=== PATIENT | female | born 1960 | race Caucasian/White ===

== ENCOUNTER 2019-06-28 13:21 | Inpatient (IN) ==
[2019-06-28 14:10] LABS: BASO# 0.15 X1000 (0.0-0.2); EOS# 0.12 X1000 (0.0-0.7); EOS% 0.8 % (0.0-10.0); HEMATOCRIT 36.7 % (37.0-47.0); HEMOGLOBIN 10.1 g/dL (12.0-16.0); IMM GRAN# 0.07 X1000 (0.0-0.04); IMM GRAN% 0.5 % (0.0-0.5); LYMPH# 2.57 X1000 (1.2-3.4); MCH 25.7 PG (27-31); MCHC 27.5 g/dL (33-37); MCV 93.4 FL (81-99); MONO# 1.38 X1000 (0.11-0.59); MONO% 9.1 % (1.7-9.3); MPV 8.8 FL (7.4-10.4); NEUT# 10.86 X1000 (1.4-6.5); NEUT% 71.6 % (42.2-75.2); PLT 623 X1000 (130-400); RBC 3.93 XMIL (4.2-5.4); RDW 17.7 % (11.5-14.5); WBC 15.15 X1000 (4.8-10.8)
--- NOTE | 2019-06-28 14:13 | Diag Imaging Result Doc PS360 ---
CHEST-1 VIEW - 06/28/2019 INDICATION: SOB COMPARISON: 06/17/2016 FINDINGS: The lung volumes are lower. There is some increasing linear atelectasis in both lung bases. There is mild cardiomegaly. No infiltrates or edema. No pneumothorax or large pleural effusion. IMPRESSION: Mild cardiomegaly. Lower lung volumes. Bibasilar linear atelectasis. Electronically signed by Placido Bragg 06/28/2019 2:10 PM
[2019-06-28 14:28] LABS: ALB/GLOB RATIO 1.3; ALBUMIN 3.7 g/dL (3.5-5.0); CALCIUM 8.8 mg/dL (8.8-10.2); CREATININE 1.3 mg/dL (0.5-0.9); POTASSIUM 4.4 mmol/L (3.5-5.1); TOTAL BILIRUBIN 0.27 mg/dL (0.20-1.00); TOTAL PROTEIN 6.5 g/dL (6.3-8.3)
[2019-06-28 14:37] LABS: ALLEN TEST YES; BE 2.5 mmoll (-3.0-3.0); BLOOD TYPE ARTERIAL; HCO3-(ACT) 26.6 mmoll (20.0-26.0); METHB 1.4 % (0.0-1.5); O2(CT) 12.8 mL/dL (15.0-23.0); PO2(98.6) 81 mmHg (60-100); SAMPLE BLOOD; SAO2 94.8 % (95.0-100.0); THB 10.6 g/dL (11.5-17.4)
[2019-06-28 14:38] LABS: MODALITY CANNULA; pH(98.6) 7.19 (7.35-7.45)
[2019-06-28 14:39] LABS: O2HB 85.1 % (95.0-99.0); PCO2(98.6) 85 mmHg (35-45)
--- NOTE | 2019-06-28 15:08 | Diag Imaging Result Doc PS360 ---
CT HEAD W/O CONTRAST - 06/28/2019 INDICATION: acute confusion COMPARISON: None FINDINGS: The ventricles and sulci are normal in size and contour. No intracranial mass or hemorrhage. The skull is intact. The sinuses mastoids and middle ears are clear. IMPRESSION: Negative exam. This exam was performed using automated exposure control, adjustment of mA or kV according to patient size, and/or use of iterative reconstruction technique Electronically signed by Placido Bragg 06/28/2019 3:06 PM
[2019-06-28 15:58] LABS: UR AMPHETAMINES QUAL NONE DETECTED (NONE DETECT); UR BARBITUATES QUAL NONE DETECTED (NONE DETECT); UR BENZODIAZEPIN QUAL NONE DETECTED (NONE DETECT); UR CANNABINOIDS QUAL NONE DETECTED (NONE DETECT); UR COCAINE QUAL NONE DETECTED (NONE DETECT); UR METHADONE QUAL NONE DETECTED (NONE DETECT); UR OPIATES QUAL NONE DETECTED (NONE DETECT); UR OXYCODONE QUAL PRESUMPTIVE POSITIVE (NONE DETECT); UR PCP QUAL NONE DETECTED (NONE DETECT)
[2019-06-28] MEDS ORDERED: NARCAN ONE (16:09)
[2019-06-28] MEDS ORDERED: NARCAN IV ONE (16:10)
--- NOTE | 2019-06-28 16:42 | PROVIDER DOCUMENTATION ---
This chart was entered by Gisselle Munoz Scribe, acting as scribe for Caden Tiwari MD. HPI-Respiratory General - General Chief Complaint: Shortness of Breath Stated Complaint: SOB WORSENING Time Seen by Provider: 06/28/19 13:24 Source: patient Allergies/Adverse Reactions: Patient Allergies Allergy/AdvReac Type Severity Reaction Status Date / Time Penicillins Allergy HIVES Verified 05/26/15 13:10 antihistamines Allergy SHORTNESS Uncoded 05/26/15 13:10 OF BREATH Home Medications: Home Medication List Medication Instructions Recorded Confirmed Last Taken Type Albuterol Sulfate [Proventil Hfa] 2 puff PO PRN PRN 05/26/15 06/18/16 05/26/15 11:00 History Cholecalciferol (Vitamin D3) 50,000 unit PO DIRECTED 05/26/15 06/18/16 05/24/15 02:00 History [Vitamin D] Fluticasone/Vilant 100/25 INH 1 inhaler DAILY 05/26/15 06/18/16 05/24/15 02:00 History [Breo Ellipta 100/25 Mcg INH] Losartan [Cozaar] 25 mg PO DAILY 05/26/15 06/18/16 05/26/15 02:00 History Levofloxacin [Levaquin] 500 mg PO DAILY #10 tablet 05/29/15 06/18/16 Unknown Rx Methylprednisolone [Medrol Dosepak] 4 mg PO DIRECTED #1 package 05/29/15 06/18/16 Unknown Rx Tiotropium [place] Inhaler 1 puff INH RTDAILY #30 inhaler 05/29/15 06/18/16 Unknown Rx [Spiriva] Albuterol 2.5MG/Ipratrop 0.5MG 3 ml INH Q6H PRN PRN #120 neb 06/18/16 Unknown Rx [Duoneb] Fluticasone/Salmeterol [Advair 1 each IH BID #3 disk.w.dev 06/18/16 Unknown Rx 500-50 Diskus] Levofloxacin [Levaquin] 500 mg PO DAILY #10 tablet 06/18/16 Unknown Rx Methylprednisolone [Medrol Dosepak] 4 mg PO DIRECTED #1 package 06/18/16 Unknown Rx - History of Present Illness-Resp Nature of Presenting Problem: 58 yof c/o sob for few days becoming worse. pt is on 4L o2, advair and spiriva at home. pt was d/c 10 days ago for PNA, is on levaquin and steroids. pt was able to have conversation w/rn but during exam, pt became altered. pt pcp is Dr. balderrama. hx COPD. pt smokes 2ppd. Severity in ED: reports: mild Onset/Duration: reports: gradual Timing: reports: still present, getting worse Cough Quality/Degree: reports: no cough Current Respiratory Medication Therapy: Initiated other (2L o2, advair and spiriva) Modifying Factors: improves with: nothing Associated Symptoms: reports: denies symptoms Recently seen or treated by another doctor?: Yes Review of Systems - Adult - REVIEW OF SYSTEMS - ADULT Constitutional: reports: see HPI, other (AMS). denies: fever, fatique, night sweats Eyes: reports: no symptoms reported Ears, Nose, Mouth & Throat: reports: no symptoms reported Cardiovascular: reports: no symptoms reported Respiratory: reports: see HPI, shortness of breath. denies: cough, dyspnea on exertion, wheezing Gastrointestinal: reports: no symptoms reported Genitourinary: reports: no symptoms reported Musculoskeletal: reports: no symptoms reported Integumentary: reports: no symptoms reported Neurological: reports: no symptoms reported Psychiatric: reports: no symptoms reported Endocrine: reports: no symptoms reported Hematologic/Lymphatic: reports: no symptoms reported Allergic/Immunologic: reports: no symptoms reported All Other Systems: Reviewed and Negative Past History - Adult - PAST MEDICAL HISTORY-ADULT Review of Records: reports: Nursing Assessment Review, Medications Reviewed, Social history reviewed & non-contributory. Major Childhood Illnesses: reports: denies history Cardiovascular: reports: HTN Respiratory: reports: COPD Gastrointestinal: reports: denies history Obstetrical/Gynecological: reports: denies history Genitourinary: reports: denies history Musculoskeletal: reports: denies history Neurological: reports: denies history Endocrine/Immune: reports: denies history Other Conditions: reports: denies history - PRIOR SURGERIES/PROCEDURES Surgical/Procedure History: reports: none - IMMUNIZATION STATUS Childhood Immunizations: See Nurse Assessment Flu Vaccine: See Nurse Assessment - FAMILY HISTORY Family History: reviewed, not pertinent - SOCIAL HISTORY Smoking: cigarettes, greater than 1 pack/day Provider spent 3-5 mins advising pt. on dangers of tobacco.: Discussed manners to quit use, and f/u contacts for add'l counseling. Substance Use: none/never Physical Exam-General - PHYSICAL EXAM-ADULT Initial Vital Signs Reviewed: Yes - CONSTITUTIONAL General Appearance: no apparent distress, slow to respond. negative: cachetic, anxious, lethargic - EYES Eyes: PERRL/EOMI - HEAD, EARS, NOSE, MOUTH & THROAT HENMT: normocephalic/atraumatic, moist mucous membranes - NECK Neck: non-tender, full range of motion, supple, normal inspection - RESPIRATORY Respiratory: chest non-tender, lungs clear, normal breath sounds, no pleuratic chest pain, no respiratory distress, no accessory muscle use. negative: respiratory distress, decreased breath sounds, wheezing - CARDIOVASCULAR Cardiovascular: normal peripheral pulses, regular rate, rhythm - GASTROINTESTINAL (ABDOMEN) Abdominal Exam: normal bowel sounds, non tender, soft - MUSCULOSKELETAL Back Exam: normal inspection Extremity: normal range of motion, non-tender, normal inspection - SKIN Integumentary: normal color, normal turgor, warm/dry - NEUROLOGIC Neurologic: no motor/sensory deficits - PSYCHIATRIC Psych/Mental Status: other (tangentral responses to questions but not completely disoriented, kept saying she wanted to go to sleep). negative: normal mood/affect, normal thought content, normal thought process Progress - PLAN OF CARE/RESULTS Progress/Plan/Lab Results: Vital Signs - 8 hr 06/28/19 13:44 06/28/19 15:43 Temperature 99.0 F Pulse Rate 107 H 101 H Respiratory Rate 24 30 H Blood Pressure 117/91 117/91 O2 Sat by Pulse Oximetry 95 86 L Laboratory Results - last 24 hr 06/28/19 06/28/19 06/28/19 13:25 13:25 13:25 WBC RBC Hgb Hct MCV MCH MCHC RDW Std Deviation Plt Count MPV Immature Gran % (Auto) Neut % (Auto) Lymph % (Auto) [place] % (Auto) Eos % (Auto) Baso % (Auto) Immature Gran # (Auto) Neut # (Auto) Lymph # (Auto) [place] # (Auto) Eos # (Auto) Baso # (Auto) Specimen Type Sample Site pH pCO2 pO2 HCO3 Base Excess Oxyhemoglobin ABG O2 Sat (Calculated) ABG O2 Saturation ABG Carboxyhemoglobin ABG Methemoglobin Phil Test A-a O2 Difference Total Hemoglobin Lactate Liter Flow Blood Gas Modality FiO2 % Sodium 133 L Potassium 4.4 Chloride 90 L Carbon Dioxide 28 Anion Gap 15 BUN 34 H Creatinine 1.3 H Estimated GFR/1.73 m2 42 BUN/Creatinine Ratio 26 Glucose 132 H Calculated Osmolality 276 Calcium 8.8 Total Bilirubin 0.27 AST 16 ALT 11 Alkaline Phosphatase 84 Creatine Kinase 75 Troponin T High Sens 58 H Wcv-E-Jzucflehvxy Pept 89392 H Total Protein 6.5 Albumin 3.7 Globulin 2.8 Albumin/Globulin Ratio 1.3 Urine Opiates Screen Ur Oxycodone Screen Ur Methadone, Qual Ur Barbiturates Screen Ur Phencyclidine Scrn Ur Amphetamines Screen U Benzodiazepines Scrn Urine Cocaine Screen U Cannabinoids Screen Plasma/Serum Ethyl Alc 06/28/19 06/28/19 06/28/19 13:25 13:25 14:30 WBC 15.15 H RBC 3.93 L Hgb 10.1 L Hct 36.7 L MCV 93.4 MCH 25.7 L MCHC 27.5 L RDW Std Deviation 17.7 H Plt Count 623 H MPV 8.8 Immature Gran % (Auto) 0.5 Neut % (Auto) 71.6 Lymph % (Auto) 17.0 L [place] % (Auto) 9.1 Eos % (Auto) 0.8 Baso % (Auto) 1.0 H Immature Gran # (Auto) 0.07 H Neut # (Auto) 10.86 H Lymph # (Auto) 2.57 [place] # (Auto) 1.38 H Eos # (Auto) 0.12 Baso # (Auto) 0.15 Specimen Type ARTERIAL Sample Site R RADIAL pH 7.19 L* pCO2 85 H* pO2 81 HCO3 26.6 H Base Excess 2.5 Oxyhemoglobin 85.1 L* ABG O2 Sat (Calculated) 12.8 L ABG O2 Saturation 94.8 L ABG Carboxyhemoglobin 8.70 H* ABG Methemoglobin 1.4 Phil Test YES A-a O2 Difference 12.0 Total Hemoglobin 10.6 L Lactate 0.90 Liter Flow 2.0 Blood Gas Modality CANNULA FiO2 % 28.0 Sodium Potassium Chloride Carbon Dioxide Anion Gap BUN Creatinine Estimated GFR/1.73 m2 BUN/Creatinine Ratio Glucose Calculated Osmolality Calcium Total Bilirubin AST ALT Alkaline Phosphatase Creatine Kinase Troponin T High Sens [place]-[id number] Pept Total Protein Albumin Globulin Albumin/Globulin Ratio Urine Opiates Screen Ur Oxycodone Screen Ur Methadone, Qual Ur Barbiturates Screen Ur Phencyclidine Scrn Ur Amphetamines Screen U Benzodiazepines Scrn Urine Cocaine Screen U Cannabinoids Screen Plasma/Serum Ethyl Alc 06/28/19 15:40 WBC RBC Hgb Hct MCV MCH MCHC RDW Std Deviation Plt Count MPV Immature Gran % (Auto) Neut % (Auto) Lymph % (Auto) [place] % (Auto) Eos % (Auto) Baso % (Auto) Immature Gran # (Auto) Neut # (Auto) Lymph # (Auto) [place] # (Auto) Eos # (Auto) Baso # (Auto) Specimen Type Sample Site pH pCO2 pO2 HCO3 Base Excess Oxyhemoglobin ABG O2 Sat (Calculated) ABG O2 Saturation ABG Carboxyhemoglobin ABG Methemoglobin Phil Test A-a O2 Difference Total Hemoglobin Lactate Liter Flow Blood Gas Modality FiO2 % Sodium Potassium Chloride Carbon Dioxide Anion Gap BUN Creatinine Estimated GFR/1.73 m2 BUN/Creatinine Ratio Glucose Calculated Osmolality Calcium Total Bilirubin AST ALT Alkaline Phosphatase Creatine Kinase Troponin T High Sens Axx-E-Fxlzcjsikbg Pept Total Protein Albumin Globulin Albumin/Globulin Ratio Urine Opiates Screen NONE DETECTED Ur Oxycodone Screen PRESUMPTIVE POSITIVE A Ur Methadone, Qual NONE DETECTED Ur Barbiturates Screen NONE DETECTED Ur Phencyclidine Scrn NONE DETECTED Ur Amphetamines Screen NONE DETECTED U Benzodiazepines Scrn NONE DETECTED Urine Cocaine Screen NONE DETECTED U Cannabinoids Screen NONE DETECTED Plasma/Serum Ethyl Alc Orders Category Date Time Status Cardiac Monitoring DIRECTED Care 06/28/19 13:56 Active NEWS Score >or=5:Order NEWS Bundle S.O. NOW Care 06/28/19 13:48 Active Oxygen Therapy- ED Nursing DIRECTED Care 06/28/19 13:56 Active Saline Loc NOW Care 06/28/19 13:56 Active CHEST-1 VIEW [RAD] Stat Exams 06/28/19 13:[address] HEAD W/O CONTRAST [CT] Stat Exams 06/28/19 13:57 Completed ABG [RESP] Routine Lab 06/28/19 14:30 Completed ALCOHOL BLOOD Stat Lab 06/28/19 13:25 Completed CBC WITH ELECTRONIC DIFF [HEME] Stat Lab 06/28/19 13:25 Completed CK PROFILE [SP CHEM] Stat Lab 06/28/19 13:25 Completed COMPREHENSIVE METABOLIC PANEL [CHEM] Stat Lab 06/28/19 13:25 Completed PRO B-NATRIURETIC PEPTIDE Stat Lab 06/28/19 13:25 Completed TROPONIN T HIGH SENSITIVITY Stat Lab 06/28/19 13:25 Completed URINE DRUG SCREEN Stat Lab 06/28/19 15:40 Completed Naloxone [Narcan] Med 06/28/19 16:09 Discontinued 0.4 mg .ROUTE .STK-MED ONE Naloxone [Narcan] Med 06/28/19 16:10 Discontinued 0.4 mg IV NOW ONE CP/SOB/Palp >45 yrs of Age Stat Oth 06/28/19 13:56 Ordered EKG [EKG] Stat Ther 06/28/19 13:56 Ordered Result Diagrams: 06/28/19 13:25 06/28/19 13:25 - REASSESSMENT Reassessment #1 Time Reassessed: 14:41 Status: other (RT spoke to MD and sts her CO2 level is too high.) Reassessment #2 Time Reassessed: 14:59 Status: other (I serially decreased 02, eventually to RA, at which time pt' sat fell precipitously, however she remained difficult to arouse. I then put her back on 02 NC and ordered Bipap. will consult Dr. Bladerrama for admit) - EKG 1 Time of EKG reading by physician:: 15:21 EKG Read and Signed by:: Caden Tiwari EKG Interpretation (*Must complete 3 of following elements*): Abnormal Rate: 104 (poss LAE ) Rhythm: Sinus Tachycardia [place]: normal QRS: normal [place] Interval: normal ST Wave: non-specific ST changes (T wave abormality) - XRAY 1 XRAY Study: Chest Impression: Abnormal, See EMR Report ( CHEST-1 VIEW - 06/28/2019 INDICATION: SOB COMPARISON: 06/17/2016 FINDINGS: The lung volumes are lower. There is some increasing linear atelectasis in both lung bases. There is mild cardiomegaly. No infiltrates or edema. No pneumothorax or large pleural effusion. IMPRESSIO N: Mild cardiomegaly. Lower lung volumes. Bibasilar linear atelectasis. Electronically signed by Placido Bragg 06/28/2019 2:10 PM) - CONSULTS/PCP/HOSPITALIST Notification #1 *Consult/PCP/Hospitalist*: Dr. Garcia Time Discussed: 16:35 Consult Disposition: Will see in ED Departure - Departure Date of Disposition Decision: 06/28/19 Time of Disposition Decision: 16:40 DIAGNOSIS: Respiratory failure with hypoxia and hypercapnia, COPD (chronic obstructive pulmonary disease), Continuous tobacco abuse Disposition: ADMITTED INPATIENT 09 Certified Medical Emergency: Emergent Condition: Critical Referrals and Follow-Ups: Jesus Balderrama MD [Primary Care Provider] - - Critical Care Note This patient required my direct & personal management of CC.: Yes Total Time (mins): 50 Critical Care Statement: This patient required my direct personal management to treat or rule out processes, the absence of which, could potentiallly result in sudden, clinically significant life or limb threatening deterioration. Attestation - Physician/ DEB Attestation Patient care was provided by Advanced Practice Provider:: No The physician spent face to face time with patient:: Yes Advanced Practice Provider documentation review:: Supervising physician onsite and consulted in the evaluation and care of this patient. The physician did have a face to face encounter with the patient. This chart was documented by the indicated scribe, (Gisselle Munoz, David) and accurately reflects the services I performed and decisions made by me, Caden Tiwari MD, as attested by the provider's signature.
[2019-06-28] MEDS ORDERED: AMIDATE IV ONE ×2 (18:20→18:30)
[2019-06-28] MEDS ORDERED: QUELICIN IV ONE (18:20)
[2019-06-28] MEDS ORDERED: NS 500 ML ONE (18:23)
[2019-06-28] MEDS ORDERED: AMIDATE ONE (18:26)
[2019-06-28] MEDS ORDERED: DIPRIVAN 1% IV PRN (18:41)
[2019-06-28] MEDS ORDERED: ZOFRAN IV PRN (18:42)
[2019-06-28] MEDS ORDERED: DIPRIVAN 1% 1,000 MG/100 ML BOTTLE ONE ×2 (18:51→21:40)
[2019-06-28] MEDS: VERSED IV ONE ×2 (19:04→21:08)
--- NOTE | 2019-06-28 19:23 | HISTORY AND PHYSICAL ---
CHIEF COMPLAINT: Shortness of breath. HISTORY OF PRESENT ILLNESS: Ms. Solorio is a 58-year-old female who was brought into the emergency room with complaint of having shortness of breath and difficulty breathing. By the time I came to see her, she was having altered mental status as well and was on BiPAP, which was not able to improve her symptoms. She has history of hypercapnic chronic respiratory failure with chronic obstructive pulmonary disease. She was recently discharged from the hospital with pneumonia that has improved, but she started having symptoms of shortness of breath, because of which she had to be brought back to the hospital. PAST MEDICAL HISTORY: 1. Chronic obstructive pulmonary disease. 2. Hypertension. 3. Hypothyroidism. 4. Chronic tobacco abuse. 5. Vitamin D deficiency. PAST SURGICAL HISTORY: 1. Appendectomy. 2. Hysterectomy. ALLERGIES: The patient reports to be allergic to penicillin. SOCIAL HISTORY: The patient lives in [place] and has been smoking 1 pack of cigarettes per day for over 30 years. She does not drink any alcohol and does not use any recreational drugs. She is and has 1 daughter. FAMILY HISTORY: Noncontributory. CURRENT HOME MEDICATIONS: 1. Losartan 25 mg orally once daily. 2. Spiriva 1 inhalation once daily. 3. Advair Diskus 500/50 one inhalation twice daily. 4. Vitamin D3 10,000 units orally once daily. 5. Albuterol inhaler 2 puffs q.4 hours as needed for wheezing. 6. Albuterol and ipratropium nebulization treatments 4 times a day as needed for wheezing. REVIEW OF SYSTEMS: Full review of systems could not be obtained since patient is having altered mental status and because of the acuity of her condition. PHYSICAL EXAMINATION: VITAL SIGNS: Temperature 99 degrees, pulse 101 per minute, respiratory rate 30 per minute, blood pressure 117/91, pulse oximetry 86% on 1 L of oxygen via nasal cannula and 100% on 15 L of oxygen via mechanical bag. HEENT: No acute abnormality noted. NECK: Supple without any thyromegaly. LYMPHATICS: No lymphadenopathy noted in neck region. CHEST: Chest wall is nontender. CARDIOVASCULAR: First and second heart sounds are audible without any murmurs or gallops. RESPIRATORY: The patient appears to be significantly dyspneic and has been gasping for air. Bilateral lung air entry is significantly decreased with very shallow breathing. No rales or rhonchi are present on auscultation, however. GASTROINTESTINAL: Abdomen is soft and nondistended. Normal bowel sounds are present. MUSCULOSKELETAL: No deformities are present. NEUROLOGIC: The patient is having very somnolence and is not able to respond to verbal stimuli. She does respond to painful stimuli, but is nonverbal otherwise. No focal deficits are noted otherwise. PSYCHIATRIC: Exam could not be performed because of the patient's condition. GENITOURINARY: Deferred. INTEGUMENTARY: Skin is warm and dry without any rash. DIAGNOSTIC DATA: CBC shows WBC count of 15.15, hemoglobin 10.1, hematocrit 36.7 and platelet count of 623,000. Chemistry done here at the emergency room showed BUN of 34 and creatinine 1.3. Rest of the chemistry is nondiagnostic. ProBNP is elevated at 19,618 and high sensitivity troponin T levels are slightly elevated at 58. Arterial blood gases done at the emergency room showed a pH of 7.19, pCO2 85, and PO2 81 on 28% of oxygen. Chest x-ray obtained at the emergency room showed mild cardiomegaly with lower lung volumes and bibasilar lung atelectasis, but no acute infiltrate. Head CT was performed at the emergency room and was negative. PROCEDURE NOTE: The patient was having acute respiratory failure, because of which I decided to intubate her. After giving her etomidate 20 mg IV along with succinylcholine 85 mg IV, the patient was intubated with 7.5 gauge of ET tube without noting any immediate complications. The patient's oxygenation immediately improved to 100% and had bilateral air entry good on auscultation. Chest x-ray later confirmed proper ET tube placement. IMPRESSION: Acute on chronic hypercarbic respiratory failure with altered mental status secondary to acute respiratory acidosis and acute chronic obstructive pulmonary disease exacerbation in this 58-year- old lady who has history of chronic tobacco abuse and hypertension. PLAN: The patient will be admitted to the intensive care unit and will be started on propofol IV as per protocol. She will also be given methylprednisolone 80 mg IV q.8 hours along with albuterol and ipratropium bromide nebulization treatments. We will provide her broad-spectrum antibiotic coverage with levofloxacin 750 mg IV q.24 hours and give her VTE prophylaxis with enoxaparin 40 mg subcutaneously every 24 hours. We are also going to give her GI prophylaxis with pantoprazole 40 mg IV q.24 hours and would obtain pulmonology consultation to further assist us in managing this patient since she will be on ventilator. Dr. Jenkins is going to assume care from tomorrow morning. Further recommendations will be given as per hospital course. TIME SPENT: A total of 35 minutes of critical care time spent. cc: MD Ángel Trejo MD MTDD
[2019-06-28] MEDS: DUONEB (A & A) INH SCH ×2 (19:30→23:45)
[2019-06-28] MEDS ORDERED: LEVOPHED 8 MG in D5 1/2 NS 250 ML IV SCH (19:30)
[2019-06-28 19:34] LABS: URINE SOURCE CATH
--- NOTE | 2019-06-28 19:35 | Diag Imaging Result Doc PS360 ---
CHEST-PORTABLE - 06/28/2019 7:11 PM INDICATION: Intubation COMPARISON: 1:42 PM FINDINGS: There is a new endotracheal tube in good position at T4-T5. Nasogastric tube in good position in the stomach. Stable cardiomegaly. There is slightly increasing atelectasis or infiltrate in the lung bases. IMPRESSION: Good endotracheal and nasogastric tube placement. Electronically signed by Placido Bragg 06/28/2019 7:33 PM
[2019-06-28 19:37] LABS: BILIRUBIN URINE NEGATIVE (NEGATIVE); BLOOD URINE NEGATIVE (NEGATIVE); COLOR YELLOW; GLUCOSE URINE NEGATIVE (NEGATIVE); KETONE URINE NEGATIVE (NEGATIVE); LEUKOCYTES URINE NEGATIVE (NEGATIVE); NITRITE URINE NEGATIVE (NEGATIVE); PROTEIN URINE 50 mg/dL (NEGATIVE); SP GRAVITY URINE 1.028; TURBIDITY URINE CLEAR (CLEAR); UROBILINOGEN URINE 2 mg/dL (NORMAL)
[2019-06-28 19:39] LABS: UR EPITHELIAL CELLS <10 /HPF (<10); URINE BACTERIA NEGATIVE /HPF; URINE RBC <10 /HPF (<10); URINE WBC <10 /HPF (<10)
[2019-06-28 19:41] LABS: INR 0.9; PROTIME 12.2 Seconds (11.0-16.0)
[2019-06-28 19:42] LABS: PTT 27.2 Seconds (22.3-41.8)
[2019-06-28 20:03] LABS: ALLEN TEST YES; BLOOD TYPE ARTERIAL; HCO3-(ACT) 27.2 mmoll (20.0-26.0); METHB 1.6 % (0.0-1.5); O2(CT) 12.3 mL/dL (15.0-23.0); O2HB 90.6 % (95.0-99.0); PCO2(98.6) 50 mmHg (35-45); PO2(98.6) 117 mmHg (60-100); SAMPLE BLOOD; SRATE 20 BPM; THB 9.5 g/dL (11.5-17.4); TVOL 500 mL; pH(98.6) 7.37 (7.35-7.45)
[2019-06-28 20:04] LABS: MODALITY VENTILATOR
[2019-06-28] MEDS: NS 1,000 ML IV SCH (20:05)
[2019-06-28] MEDS: PROTONIX IV SCH (20:09)
[2019-06-28] MEDS: LOVENOX SUBQ SCH (20:11)
[2019-06-28] MEDS: LEVAQUIN 750 MG/D5W 750 MG/150 ML IVPB IV SCH (20:15)
[2019-06-28] MEDS: SOLU-MEDROL IV SCH (20:18)
[2019-06-28] MEDS: DIPRIVAN 1% 1,000 MG/100 ML BOTTLE IV SCH (21:42)
[2019-06-29] MEDS: DIPRIVAN 1% 1,000 MG/100 ML BOTTLE IV SCH ×8 (00:56→21:06)
[2019-06-29] MEDS: SOLU-MEDROL IV SCH ×3 (02:03→17:46)
[2019-06-29 04:34] LABS: ALLEN TEST YES; BE 3.4 mmoll (-3.0-3.0); BLOOD TYPE ARTERIAL; HCO3-(ACT) 27.5 mmoll (20.0-26.0); METHB 1.7 % (0.0-1.5); O2(CT) 13.8 mL/dL (15.0-23.0); O2HB 92.2 % (95.0-99.0); PCO2(98.6) 34 mmHg (35-45); PO2(98.6) 74 mmHg (60-100); SAMPLE BLOOD; SAO2 95.2 % (95.0-100.0); THB 10.6 g/dL (11.5-17.4)
[2019-06-29 04:36] LABS: MODALITY VENTILATOR
[2019-06-29 05:09] LABS: BASO# 0.02 X1000 (0.0-0.2); BASO% 0.2 % (0.0-0.8); HEMATOCRIT 34.1 % (37.0-47.0); HEMOGLOBIN 9.7 g/dL (12.0-16.0); IMM GRAN# 0.04 X1000 (0.0-0.04); IMM GRAN% 0.3 % (0.0-0.5); LYMPH# 0.73 X1000 (1.2-3.4); LYMPH% 5.7 % (20.5-51.1); MCH 26.1 PG (27-31); MCHC 28.4 g/dL (33-37); MCV 91.7 FL (81-99); MONO# 0.34 X1000 (0.11-0.59); MONO% 2.7 % (1.7-9.3); MPV 8.9 FL (7.4-10.4); NEUT# 11.67 X1000 (1.4-6.5); NEUT% 91.1 % (42.2-75.2); PLT 471 X1000 (130-400); RBC 3.72 XMIL (4.2-5.4); RDW 17.6 % (11.5-14.5)
[2019-06-29 05:26] LABS: LYMPHS 8 % (21-51); SEGS 88 % (42-75)
[2019-06-29] MEDS ORDERED: PROTONIX [NONFORMULARY] PO SCH (07:00)
[2019-06-29 07:14] LABS: AGAP 18; ALB/GLOB RATIO 1.1; ALBUMIN 3.2 g/dL (3.5-5.0); ALKALINE PHOSPHATASE 74 U/L (32-104); BUN 23 mg/dL (8-22); CALCIUM 8.7 mg/dL (8.8-10.2); CHLORIDE 95 mmol/L (98-107); COSMO 276; CREATININE 0.7 mg/dL (0.5-0.9); ESTIMATED GFR > 60; GLUCOSE 111 mg/dL (70-104); GOT 15 U/L (10-30); GPT 9 U/L (10-36); POTASSIUM 3.6 mmol/L (3.5-5.1); SODIUM 136 mmol/L (136-145); TCO2 23 mmol/L (25-35); TOTAL BILIRUBIN 0.43 mg/dL (0.20-1.00); TOTAL PROTEIN 6.2 g/dL (6.3-8.3)
--- NOTE | 2019-06-29 07:38 | EKG Report ---
Test Performed on : 06/28/2019 3:21:36 PM Test Reason : dyspnea Blood Pressure : / mmHG Vent. Rate : 104 BPM Atrial Rate : 104 BPM P-R Int : 162 ms QRS Dur : 088 ms QT Int : 318 ms P-R-T Axes : 070 071 038 degrees QTc Int : 418 ms Sinus tachycardia. Possible Left atrial enlargement Nonspecific T wave abnormality Abnormal ECG When compared with ECG of 26-MAY-2015 11:31, Nonspecific T wave abnormality now evident in Inferior leads Nonspecific T wave abnormality now evident in Anterior leads Unconfirmed Result
[2019-06-29] MEDS: NS 1,000 ML IV SCH ×2 (08:14→17:45)
[2019-06-29] MEDS: COZAAR PO SCH (08:28)
[2019-06-29] MEDS: DUONEB (A & A) INH SCH ×5 (08:30→23:19)
[2019-06-29] MEDS: SPIRIVA INH SCH (08:31)
--- NOTE | 2019-06-29 15:09 | PROVIDER PROGRESS NOTE ---
Progress Note Patient has been seen and examined. A full dictation to follow.
[2019-06-29] MEDS: ATIVAN IV PRN (16:53)
--- NOTE | 2019-06-29 16:54 | PULMONOLOGY CONSULTATION ---
DATE: 06/29/2019 REQUESTING PROVIDER: Anjana Garcia MD REASON FOR CONSULTATION: Acute respiratory failure. HISTORY OF PRESENT ILLNESS: This is a 58-year-old female with a medical history of COPD, hypertension, hypothyroidism, ongoing tobacco use, and vitamin D deficiency. She presented to the ER yesterday afternoon with worsening shortness of breath for several days. Initial ABG showed hypercapnic respiratory failure with pCO2 85 and pH 7.19. Per H and P the patient was recently discharged from some hospital with pneumonia. In the ER patient developed altered mental status. She eventually required intubation. She has been on Lovenox, Solu-Medrol, bronchodilators and fluid resuscitation with normal saline at 100 mL/h since admission. Patient currently is still intubated and sedated with Diprivan drip at 75 mcg/kg/min. RN at the bedside reported that the patient had gag reflux during oral care at an earlier time with eyes open. Profound saliva-type oral secretion during my encounter is noted. There is no family at the bedside. All other information is obtained from the E-chart. PAST MEDICAL HISTORY: 1. COPD. History of home oxygen therapy, unknown about home oxygen use prior to admission. 2. Hypertension. 3. Hypothyroidism. 4. Ongoing tobacco abuse. The patient smokes 2 packs of cigarettes per day prior to admission. She has been smoking over 30 years. 5. Vitamin D deficiency. 6. History of hyperparathyroidism with mild hypocalcemia. 7. History of hyponatremia secondary to syndrome of inappropriate antidiuretic hormone secretion. PAST SURGICAL HISTORY: Appendectomy and complete hysterectomy. SOCIAL HISTORY: Per H and P, the patient lives in [place]. ER documentation mentions that she smokes 2 packs per day. She has been smoking more than 40 years. She does not drink any alcohol or use any recreational drugs. FAMILY HISTORY: Positive for COPD, massive heart attack and cancer. ALLERGIES: Penicillins and antihistamines. REVIEW OF SYSTEMS: Unable to be obtained as patient is intubated and sedated. PHYSICAL EXAMINATION: Vital Signs: Temperature 99 degrees with no fever since admission. Pulse 83, respiratory rate 20, oxygen saturation 97%. Blood pressure 138/75, and oxygen saturation 97% on AC mechanical ventilator with spontaneous rate 20, FiO2 35%, tidal volume 500 and PEEP 5. General: Intubated, lying in bed with no acute distress noted. HEENT: Atraumatic, normocephalic. Trachea midline. Mucosa pink and moist. ET tube in place. Pupils: Equal, round, reactive to light. Respiratory: Mechanically ventilated. Symmetrical excursion. Coarse breathing sounds bilaterally with no wheezing or crackles noted. Cardiovascular: Regular rate and rhythm with S1 and S2 appreciated. Gastrointestinal: Soft, nontender. Normoactive bowel sounds in all 4 quadrants. Extremities: Right lower extremity pitting edema 1+. Left lower extremity trace edema. Bilateral lower extremity cold to touch with no cyanosis or clubbing noted. Dorsalis pedis diminished bilaterally. Neurologic: Sedated, unresponsive to verbal stimuli, responsive to painful stimuli. LABORATORY DATA: White blood cell 12.80, hemoglobin 9.7, hematocrit 34.1, platelet 471,000. Sodium 136, potassium 3.6, chloride 95, carbon dioxide 23, BUN 23, creatinine 0.7, glucose 111. ABG: pH 7.50, pCO2 34, PO2 74, HC03 27.5, base excess 3.4, oxyhemoglobin 92.2 on AC ventilator with spontaneous rate 20, FiO2 35%, tidal volume 500 and PEEP 5. IMAGING DATA: Chest x-ray last night after intubation showed stable cardiomegaly with slightly increase in atelectasis or infiltrate in the lung bases. ASSESSMENT: This is a 58-year-old female with a medical history of chronic obstructive pulmonary disease, hypertension, hypothyroidism, chronic ongoing tobacco abuse and vitamin D deficiency. She had been admitted to ICU yesterday with acute respiratory failure requiring intubation and acute metabolic encephalopathy. 1. Acute respiratory failure, hypoxic and hypercapnic on intubated on 06/28/2019. 2. Acute metabolic encephalopathy. 3. Chronic obstructive pulmonary disease with ongoing tobacco use. No acute exacerbation noted. 4. Bibasilar linear atelectasis or infiltrate. 5. Elevated proBNP with mild cardiomegaly. 6. Acute renal failure at presentation which has been improved this morning per CMP. PLAN: 1. Continue ventilatory support. We reviewed and titrated the ventilator settings to patient's needs per clinical protocol. We will monitor patient's response closely. We will follow up ABG and chest x-ray daily. If the patient continues to improve, we will consider to start weaning trials tomorrow. 2. We reviewed and titrated Diprivan drip to patient's needs per clinical protocols. We will monitor patient's response closely to keep patient comfortable on the ventilator. 3. Continue IV Solu-Medrol and bronchodilators DuoNeb. 4. Continue antibiotic levofloxacin. 5. Continue DVT prophylaxis with Lovenox and GI prophylaxis with Protonix. 6. We will start smoking cessation education when appropriate. 7. Further recommendations pending hospital course. Thank you for the courtesy of this consult. Dr. Lees did the examination, evaluation, management, and orders. MADINA did dictation for Dr. Lees according to his direction. Total evaluation time in minutes: 36. Dictated by MADINA Bhat for Hanh Lees MD cc: MADINA Bhat MD Jagan Reddy, MD [facility] SYSTEMKamran
[2019-06-29] MEDS: LEVAQUIN 750 MG/D5W 750 MG/150 ML IVPB IV SCH (17:46)
[2019-06-29] MEDS: LOVENOX SUBQ SCH (17:46)
[2019-06-29] MEDS: PROTONIX IV SCH (18:58)
--- NOTE | 2019-06-29 19:11 | PROGRESS NOTE ---
DATE: 06/29/2019 Level 3 documentation. A 58-year-old white female was intubated yesterday for acute respiratory failure, CO2 narcosis. She was last seen in my office in 2017. Urine toxic positive for oxycodone. PAST MEDICAL HISTORY: Reviewed. PAST SURGICAL HISTORY: Reviewed. MEDICINES: Reviewed. ALLERGIES: Penicillin. EXAMINATION: Temperature is afebrile. Vitals are stable. Patient was sedated on the vent with propofol drip. Vent setting was noted. Bilateral air entry. Distant heart sounds. Belly is soft, nontender. Steiner was placed. No peripheral edema. INVESTIGATIONS: White cell count 12.8, hematocrit 34, platelets 471,000. ABG pH is 7.50, pCO2 34, PO2 74 on FiO2 35%, tidal volume 500, PEEP of 5. Sodium 136, potassium 3.6, BUN 23, creatinine 0.7. LFTs were normal. Chest x-ray cardiomegaly, nothing acute. CT head negative exam. EKG sinus tachycardia. ASSESSMENT AND PLAN: 1. Acute respiratory failure due to CO2 narcosis. 2. Chronic obstructive pulmonary disease. 3. Chronic pain. 4. Noncompliance. 5. Hypertension. PLAN OF CARE: 1. Continue IV fluids and propofol. Vent support as per Dr. Lees. 2. DVT, GI prophylaxis with Lovenox and Protonix. 3. Will wean off the vent. For COPD exacerbation continue on Levaquin, bronchodilators, IV steroids and will try to reach the family. LEVEL OF DOCUMENTATION: 35 minutes. cc: Ángel Jenkins MD
[2019-06-30] MEDS: ATIVAN IV PRN ×2 (02:24→11:00)
[2019-06-30] MEDS: DIPRIVAN 1% 1,000 MG/100 ML BOTTLE IV SCH ×4 (02:24→10:37)
[2019-06-30] MEDS: SOLU-MEDROL IV SCH ×3 (02:24→18:05)
[2019-06-30] MEDS: NS 1,000 ML IV SCH ×2 (03:15→15:27)
[2019-06-30 04:53] LABS: ALLEN TEST YES; BE 0.3 mmoll (-3.0-3.0); BLOOD TYPE ARTERIAL; HCO3-(ACT) 25.1 mmoll (20.0-26.0); METHB 1.3 % (0.0-1.5); O2(CT) 16.9 mL/dL (15.0-23.0); O2HB 94.8 % (95.0-99.0); PCO2(98.6) 30 mmHg (35-45); PO2(98.6) 95 mmHg (60-100); SAMPLE BLOOD; SAO2 96.5 % (95.0-100.0); SRATE 20 BPM; THB 12.6 g/dL (11.5-17.4); TVOL 500 mL; pH(98.6) 7.49 (7.35-7.45)
[2019-06-30 04:54] LABS: MODALITY VENTILATOR
--- NOTE | 2019-06-30 07:13 | Diag Imaging Result Doc PS360 ---
EXAM: CHEST-1 VIEW INDICATION: SOB TECHNIQUE: One view COMPARISON: 06/28/2019 FINDINGS: Support tubes and lines are in stable positions. Increased interstitial markings at the lung bases are approximately stable. No new consolidation is identified. Cardiac silhouette is stable. IMPRESSION: Essentially stable chest. Electronically signed by Rick Munoz 06/30/2019 7:11 AM
[2019-06-30] MEDS: DUONEB (A & A) INH SCH ×4 (08:09→19:10)
[2019-06-30] MEDS: SPIRIVA INH SCH (08:09)
[2019-06-30] MEDS: COZAAR PO SCH (09:01)
[2019-06-30] MEDS: HALDOL IV PRN (11:00)
[2019-06-30 12:34] LABS: ALLEN TEST YES; BE -1.6 mmoll (-3.0-3.0); BLOOD TYPE ARTERIAL; HCO3-(ACT) 23.6 mmoll (20.0-26.0); METHB 1.7 % (0.0-1.5); O2(CT) 13.6 mL/dL (15.0-23.0); O2HB 93.3 % (95.0-99.0); PCO2(98.6) 48 mmHg (35-45); PO2(98.6) 91 mmHg (60-100); SAMPLE BLOOD; SAO2 96.2 % (95.0-100.0); THB 10.3 g/dL (11.5-17.4); pH(98.6) 7.32 (7.35-7.45)
[2019-06-30 12:36] LABS: MODALITY VENTILATOR
--- NOTE | 2019-06-30 16:36 | PROVIDER PROGRESS NOTE ---
Progress Note Dr. Lees Progress Note/Pulmonary and or critical care Subjective: The patient remains intubated and sedated. She is on max Diprivan drip at this time. RN at the bedside reports that patient became awaked with attempts to pull tubes off at an earlier time. Input was appreciated from Dr. Jenkins and other teams on the case. Objective: Vital Signs: T 97.8 (no fever in last 24 hours), WV 67, RR 20, BP 127/70 and SaO2 100% on AC 20, 35%, 500, 5. I/O: +2045 ml. Physical Examination: General: intubated. Lying in bed with no acute distress noted. HEENT: Atraumatic. Normocephalic. Trachea midline. Mucosa pink and moist. ET tube in place. PEERL. Respiratory: Mechanically ventilated. Symmetrical excursion. Inspiratory and expiratory wheezing noted bilaterally with left side worse. Cardiovascular: Regular rate and rhythm with S1 and S2 appreciated. Gastrointestinal: Soft. Non-distended. Normoactive bowel sounds in all 4 quadrants. Extremities: RLE pitting edema 1+. No cyanosis or clubbing noted. Dorsalis pedis diminished bilaterally. Neurologic: Sedated. Unresponsive to verbal stimuli. Responsive to painful stimuli. Labs and Radiology: Laboratory Results 06/30/19 06/30/19 06/30/19 04:50 08:55 12:00 Specimen Type ARTERIAL Sample Site R RADIAL pH 7.49 H pCO2 30 L pO2 95 HCO3 25.1 Base Excess 0.3 Oxyhemoglobin 94.8 L ABG O2 Sat (Calculated) 16.9 ABG O2 Saturation 96.5 ABG Carboxyhemoglobin 0.60 ABG Methemoglobin 1.3 Phil Test YES A-a O2 Difference 117.0 Total Hemoglobin 12.6 Lactate 1.20 Blood Gas Modality VENTILATOR Vent Mode A/C Spontaneous Rate 20 FiO2 % 35.0 Tidal Volume 500 PEEP 5.0 Pressure Support Plasma Lactate 0.9 0.9 06/30/19 06/30/19 12:26 14:40 Specimen Type ARTERIAL Sample Site R RADIAL pH 7.32 L pCO2 48 H pO2 91 HCO3 23.6 Base Excess -1.6 Oxyhemoglobin 93.3 L ABG O2 Sat (Calculated) 13.6 L ABG O2 Saturation 96.2 ABG Carboxyhemoglobin 1.30 ABG Methemoglobin 1.7 H Phil Test YES A-a O2 Difference 99.0 Total Hemoglobin 10.3 L Lactate 0.90 Blood Gas Modality VENTILATOR Vent Mode Spontaneous Rate FiO2 % 35.0 Tidal Volume PEEP 5.0 Pressure Support 5.00 Plasma Lactate 1.0 Assessment: Acute respiratory failure, hypoxic and hypercapnic. Intubated on 06/28/19. Acute metabolic Encephalopathy. COPD with ongoing tobacco abuse. No acute exacerbation noted. Bibasilar linear atelectasis or infiltrate. Elevated proBNP and mild cardiomegaly. Acute renal failure at presentation. Improved. Plan: We reviewed and titrated ventilation settings to patients needs per clinical protocols. We will keep monitoring patients response closely and adjusting accordingly. We reviewed and titrated sedative (Diprivan drip) to patients needs per clinical protocols. We will monitor patients response closely to keep patient comfortable on the ventilator. We start weaning trials today and follow up ABG 1 hours after spontaneous breathing trials. Patient does have good cough effort. We will consider extubation if the follow up ABG indicates. Continue IV Solu-Medrol and Bronchodilators. Continue antibiotic Levofloxacin. Continue DVT and GI prophylaxis. Critical care time in minutes: 35.
[2019-06-30] MEDS: LOVENOX SUBQ SCH (18:06)
[2019-06-30] MEDS: LEVAQUIN 750 MG/D5W 750 MG/150 ML IVPB IV SCH (18:06)
--- NOTE | 2019-06-30 18:06 | PROGRESS NOTE ---
DATE: 06/30/2019 SUBJECTIVE: The patient remains intubated, sedated. NG tube was seen. Dr. Lees is trying to wean off from the ventilator. REVIEW OF SYSTEMS: None reported from the nurses. EXAM: She is resting comfortably on the mechanical ventilation.Chest: Bilateral air entry. Heart: Sounds are regular. ABDOMEN: Belly is soft, nontender. INVESTIGATIONS: CBC: White cell count 12.8, hematocrit 34, platelets 471,000. ABG pH is 7.32, pCO2 48, PO2 91 on assisted control FiO2 35, tidal volume 500, PEEP of 5, pressure support 5. SMA- 7 is normal. Chest x-ray was stable. Blood cultures were negative. ASSESSMENT AND PLAN: 1. Acute respiratory failure due to chronic obstructive pulmonary disease with narcosis. Weaning trial was started. I appreciate Dr. eLes. 2. Deep vein thrombosis and gastrointestinal prophylaxis as per order sheet. 3. Bronchodilators, IV steroids, IV antibiotics and will follow up the weaning protocol. LEVEL OF DOCUMENTATION: 25 minutes. cc: Ángel Jenkins MD
[2019-06-30] MEDS: PROTONIX IV SCH (18:08)
[2019-06-30] MEDS: SODIUM CHLORIDE 0.9% INJ SCH (18:08)
[2019-07-01] MEDS: DUONEB (A & A) INH SCH ×6 (00:09→23:18)
[2019-07-01] MEDS: HALDOL IV PRN (00:29)
[2019-07-01] MEDS ORDERED: GEODON IM PRN (01:00)
[2019-07-01] MEDS: NS 1,000 ML IV SCH ×2 (01:00→10:13)
[2019-07-01] MEDS ORDERED: STERILE WATER INJ. INJ PRN (01:00)
[2019-07-01] MEDS: SOLU-MEDROL IV SCH ×4 (01:33→18:20)
[2019-07-01] MEDS ORDERED: DUONEB (A & A) INH PRN (09:49)
[2019-07-01] MEDS: NICODERM PATCH TD SCH (10:00)
[2019-07-01] MEDS: COZAAR PO SCH (10:00)
[2019-07-01] MEDS: SPIRIVA INH SCH (11:36)
--- NOTE | 2019-07-01 18:16 | PROVIDER PROGRESS NOTE ---
Progress Note Dr. Lees Progress Note/Pulmonary and or critical care Subjective: The patient was successfully extubated yesterday. She is lying in bed with mild respiratory distress noted. She is on NC 4L with SaO2 in low 90s. We elevate HOB some and patient states she is breathing better. RN is at the bedside and gets ready to pull the NG tube out of her. Input was appreciated from Dr. Jenkins and other teams on the case. Objective: Vital Signs: T 97.9 (no fever in last 24 hours), NH 82, RR 19, BP 125/76 and SaO2 100% on VM 50%. I/O: +1139 ml. Physical Examination: General: Lying in bed with mild respiratory distress noted. HEENT: Atraumatic. Normocephalic. Trachea midline. Mucosa pink and moist. PEERL. Respiratory: Mildly labored with increased work of breathing, but no accessory muscle use noted. Symmetrical excursion. Inspiratory and expiratory wheezing noted bilaterally. Cardiovascular: Regular rate and rhythm with S1 and S2 appreciated. Gastrointestinal: Soft. Non-distended. Non-tender. Normoactive bowel sounds in all 4 quadrants. Extremities: RLE trace edema. No cyanosis or clubbing noted. Neurologic: A/O x3. Speech fluent. Follow simple commands. Labs and Radiology: No lab/radiology today. Assessment: Acute respiratory failure, hypoxic and hypercapnic. Intubated on 06/28/19. Extubated on 06/30/19. Improving. Patient currently tolerates NC 4L. Acute metabolic Encephalopathy. Improving. COPD exacerbation with ongoing tobacco abuse. Bibasilar linear atelectasis or infiltrate. Elevated proBNP and mild cardiomegaly. Acute renal failure at presentation. Improved. Plan: Continue supplemental oxygen with BiPAP at bedtime and as needed. We titrated supplemental oxygen and BiPAP settings to patients needs per clinical protocols. We will keep monitoring patients response closely and adjusting accordingly. Continue IV Solu-Medrol and Bronchodilators. No steroid weaning at this time. Continue antibiotic Levofloxacin. We will monitor patients clinical and lab r esponse closely and adjusting accordingly. Continue DVT and GI prophylaxis. Swallow evaluation is pending. Smoking cessation education provided. We encourage incentive spirometry use routinely. Critical care time in minutes: 33.
[2019-07-01] MEDS: PROTONIX IV SCH (18:20)
[2019-07-01] MEDS: SODIUM CHLORIDE 0.9% INJ SCH (18:20)
[2019-07-01] MEDS: LEVAQUIN 750 MG/D5W 750 MG/150 ML IVPB IV SCH (18:21)
[2019-07-01] MEDS: LOVENOX SUBQ SCH (18:21)
--- NOTE | 2019-07-01 18:39 | PROGRESS NOTE ---
DATE: 07/01/2019 SUBJECTIVE: The patient is awake, able to follow with verbal commands, off the vent, and still wheezing and has been taking pain medicines. PHYSICAL EXAMINATION: Vital signs: Temperature is 98 degrees. Vitals are stable. Lungs: Bilateral wheezing. Heart: Sounds are regular. Abdomen: Belly is soft, nontender. Neurologic: No obvious deficits. INVESTIGATIONS: ABG was done yesterday. She is on nasal cannula, 93%. ASSESSMENT AND PLAN: 1. Acute chronic obstructive pulmonary disease exacerbation, off the vent. 2. Chronic pain use. 3. Chronic tobacco abuse. PLAN OF CARE: 1. Discontinue the nasogastric tube. 2. Nicotrol patch. 3. Continue on bronchodilators, IV antibiotics with Levaquin and IV steroids. 4. She is on IV fluids. 5. We will start on clear liquids out of the bed with physical therapy. 6. Slowly advance the diet and we are using Geodon for agitation. 7. Deep vein thrombosis and gastrointestinal prophylaxis as per order sheet. We will follow up. LEVEL OF DOCUMENTATION: 25 minutes. cc: Ángel Jenkins MD
[2019-07-01] MEDS: TYLENOL PO PRN (18:42)
[2019-07-02] MEDS: NS 1,000 ML IV SCH ×2 (01:26→02:22)
[2019-07-02] MEDS: TYLENOL PO PRN ×3 (02:20→21:43)
[2019-07-02] MEDS: SOLU-MEDROL IV SCH ×3 (02:21→17:55)
[2019-07-02] MEDS: DUONEB (A & A) INH SCH ×5 (07:56→23:05)
[2019-07-02] MEDS: COZAAR PO SCH (10:00)
[2019-07-02] MEDS: NICODERM PATCH TD SCH (10:00)
[2019-07-02 10:21] LABS: ALLEN TEST YES; BE 0.4 mmoll (-3.0-3.0); BLOOD TYPE ARTERIAL; HCO3-(ACT) 25.2 mmoll (20.0-26.0); METHB 1.2 % (0.0-1.5); O2(CT) 12.9 mL/dL (15.0-23.0); O2HB 92.5 % (95.0-99.0); PO2(98.6) 69 mmHg (60-100); SAMPLE BLOOD; SAO2 95.1 % (95.0-100.0); THB 9.9 g/dL (11.5-17.4); pH(98.6) 7.26 (7.35-7.45)
[2019-07-02 10:26] LABS: MODALITY CANNULA; PCO2(98.6) 63 mmHg (35-45)
[2019-07-02] MEDS: VITAMIN D PO SCH (10:40)
[2019-07-02] MEDS: SPIRIVA INH SCH (11:16)
--- NOTE | 2019-07-02 17:35 | PROVIDER PROGRESS NOTE ---
Progress Note Dr. Lees Progress Note/Pulmonary and or critical care Subjective: The patient was just transferred from ICU to floor 15 minutes ago. She is on NC 3L at this time. She is sitting in bed with no acute distress noted. She states she is feeling better and she wants to go home. Objective: Vital Signs: No fever in last 24 hours, DC 89, RR 26, BP 116/66 and SaO2 99% on NC 3L. Physical Examination: General: Sitting in bed with no acute distress noted. HEENT: Atraumatic. Normocephalic. Trachea midline. Mucosa pink and moist. PEERL. Respiratory: Even and unlabored. No increased work of breathing or accessory muscle use noted. Symmetrical excursion. Improved expiratory wheezing noted bilaterally. Cardiovascular: Regular rate and rhythm with S1 and S2 appreciated. Gastrointestinal: Soft. Non-distended. Non-tender. Normoactive bowel sounds in all 4 quadrants. Extremities: RLE trace edema. No cyanosis or clubbing noted. Neurologic: A/O x3. Speech fluent. Follow simple commands. Labs and Radiology: Laboratory Results 07/02/19 10:10 Specimen Type ARTERIAL Sample Site R RADIAL pH 7.26 L pCO2 63 H* pO2 69 HCO3 25.2 Base Excess 0.4 Oxyhemoglobin 92.5 L ABG O2 Sat (Calculated) 12.9 L ABG O2 Saturation 95.1 ABG Carboxyhemoglobin 1.50 ABG Methemoglobin 1.2 Phil Test YES A-a O2 Difference 80.0 Total Hemoglobin 9.9 L Lactate 0.60 Liter Flow 3.0 Blood Gas Modality CANNULA FiO2 % 32.0 Assessment: Acute respiratory failure, hypoxic and hypercapnic. Intubated on 06/28/19. Extubated on 06/30/19. Hypoxemia improved as patient currently tolerates NC 3L. Patient did not use BiPAP last night with pCO2 up to 63 this morning. Acute metabolic Encephalopathy. Improved. COPD exacerbation with ongoing tobacco abuse. Bibasilar linear atelectasis or infiltrate at presentation. Elevated proBNP and mild cardiomegaly. Acute renal failure at presentation. Improved. Plan: We stress the importance of BiPAP compliance. Patient shows understanding and all questions have been answered. Patient states she will try to wear BiPAP tonight as long as she could tolerate. We talked with RN to make sure patient to use BiPAP tonight. We follow up ABG tomorrow morning. Continue supplemental oxygen with BiPAP at bedtime and as needed. Continue IV Solu-Medrol and Bronchodilators. Steroid weaned down at this time. Continue antibiotic Levofloxacin. Continue DVT and GI prophylaxis. Smoking cessation education provided. Patient states she will think about it. We encourage incentive spirometer use routinely. We recommend outpatient sleep study.
--- NOTE | 2019-07-02 17:48 | PROGRESS NOTE ---
DATE: 07/02/2019 SUBJECTIVE: Patient complains of headache, wants to sign out AMA. I had a long talk with the patient's . She used to live here and moved to [place], [place]. She just moved back 2 weeks ago. She is taking [place] for some leg pain and headaches and PDMP score was reviewed and an MME also was reviewed. She will be high risk for carbon dioxide narcosis. PHYSICAL EXAMINATION: Temperature is 97 degrees. Vitals are stable. 3 L nasal cannula 98%.HEENT: Exam within normal limits. Respiratory: Bilateral wheezing. Heart: Sounds are regular. Abdomen: Belly is soft, nontender. Neurological: No obvious deficits. INVESTIGATIONS: ABG pH is 7.26, pCO2 63, PO2 69. ASSESSMENT AND PLAN: 1. Acute respiratory failure due to chronic obstructive pulmonary disease. 2. Chronic headache and pain. 3. Hypertension. 4. Tobacco abuse. PLAN: 1. Decreased O2 at 2L. Will set up oxygen and please see the transfer orders. Transfer out of the ICU. I spoke to the patient, has been in my office today. LEVEL OF DOCUMENTATION: 25 minutes. cc: Ángel Jenkins MD
[2019-07-02] MEDS: LEVAQUIN 750 MG/D5W 750 MG/150 ML IVPB IV SCH (17:54)
[2019-07-02] MEDS: PROTONIX IV SCH (18:27)
[2019-07-02] MEDS: LOVENOX SUBQ SCH (18:27)
[2019-07-03] MEDS: SOLU-MEDROL IV SCH (03:40)
[2019-07-03 05:25] LABS: ALLEN TEST YES; BE 2.5 mmoll (-3.0-3.0); BLOOD TYPE ARTERIAL; HCO3-(ACT) 26.8 mmoll (20.0-26.0); O2(CT) 12.6 mL/dL (15.0-23.0); O2HB 93.7 % (95.0-99.0); PCO2(98.6) 49 mmHg (35-45); PO2(98.6) 76 mmHg (60-100); SAMPLE BLOOD; SAO2 95.9 % (95.0-100.0); THB 9.5 g/dL (11.5-17.4); pH(98.6) 7.37 (7.35-7.45)
[2019-07-03 05:26] LABS: MODALITY CANNULA
[2019-07-03 07:14] VITALS: BP 132/64
[2019-07-03] MEDS ORDERED: BREO ELLIPTA 100/25 MCG INH INH SCH (07:30)
[2019-07-03] MEDS: DUONEB (A & A) INH SCH (07:31)
[2019-07-03] MEDS: SPIRIVA INH SCH (07:32)
[2019-07-03] MEDS: VITAMIN D PO SCH (09:20)
[2019-07-03] MEDS: COZAAR PO SCH (09:20)
[2019-07-03] MEDS: TYLENOL PO PRN (09:22)
--- NOTE | 2019-07-04 20:39 | DISCHARGE SUMMARY ---
ADMISSION DATE: 06/28/2019 DISCHARGE DATE: 07/03/2019 DISCHARGING DIAGNOSIS: Acute respiratory failure due to underlying chronic obstructive pulmonary disease exacerbation. SECONDARY DIAGNOSES: 1. Hypertension. 2. Hypothyroidism. 3. Chronic tobacco abuse. 4. Vitamin D deficiency. CONSULTATIONS: Dr. Lees. PROCEDURE: Ventilator support. BRIEF HISTORY: Please see the H and P that was done by Dr. Anjana Garcia. In brief, she is a 58- year-old white female. I used to see her and apparently they had been moved to [place], [place]. They relocated back again to [place] 2 weeks ago. The patient was brought in with acute respiratory failure with CO2 narcosis, intubated, and admitted in ICU. HOSPITAL COURSE: The patient was started on ventilator support and propofol with induced sedation. The patient has NG tube. Steiner was placed. Chest x-ray was stable. The patient was given IV steroids, IV antibiotics, and bronchodilators. Subsequently, the patient was extubated after weaning trial more successful. The patient taking home oxygen 2 L along with ongoing tobacco abuse. The patient was transferred out of ICU in a stable condition. LABORATORY DATA FOLLOWS: At the time of discharge white cell count 12, hematocrit 34, platelets 471,00. ABG: pH is 7.37, pCO2 is 49, pO2 is 76 on 26% .SMA-7: Sodium 136, potassium 3.6, BUN 23, creatinine 0.7. LFTs were normal. ProBNP was elevated 19,000 and C troponin was slightly elevated. Urine toxic screen positive for oxycodone. Chest x-ray was stable. EKG on 07/02/2019: Sinus tachycardia, nothing acute. DISCUSSION: The patient is not offering any chest pain, and at the time of discharge the patient qualifies for home oxygen at 2 L nasal cannula. She is anxious to go home. DISCHARGING INSTRUCTIONS: 1. Pneumococcal vaccine 13 was given 06/18/2016. Flu vaccine was up-to-date. 2. Oxygen 2 L. 3. Quit smoking. 4. Outpatient evaluation of stress test because of the positive troponin and elevated proBNP as well as echocardiography. 5. Spiriva 1 puff at nighttime. 6. Medrol Dosepak. 7. Levaquin 500 daily. 8. Breo 1 puff in the morning. 9. Albuterol/Atrovent nebulizers q. 6. 10. Losartan 25 mg daily. 11. Vitamin D3 at 50,000 units once a week. 12. Follow up in my office in 10 days. cc: Ángel Jenkins MD
== END 2019-07-03 12:02 | disposition home health service (06) | DRG 208 ==
LOC: ED 13:21 → 2N 17:23 → EDIPHOLD 18:13 → ICU 21:01 → 3N 07-02 11:54
PROVIDERS: ADMIT Internal Medicine; ATTEND Internal Medicine

== ENCOUNTER 2019-07-11 10:19 | Inpatient (IN) ==
[2019-07-11] MEDS ORDERED: ROMAZICON IV ONE (10:28)
[2019-07-11] MEDS ORDERED: NARCAN IV ONE (10:28)
[2019-07-11] MEDS ORDERED: NARCAN ONE (10:30)
[2019-07-11] MEDS ORDERED: NS 1,000 ML ONE (10:35)
[2019-07-11] MEDS: ROMAZICON IV ONE ×2 (10:35)
[2019-07-11] MEDS ORDERED: NS 1,000 ML IV ONE (10:37)
[2019-07-11 11:13] LABS: BASO# 0.06 X1000 (0.0-0.2); BASO% 0.3 % (0.0-0.8); EOS# 0.01 X1000 (0.0-0.7); EOS% 0.1 % (0.0-10.0); HEMATOCRIT 43.4 % (37.0-47.0); HEMOGLOBIN 11.1 g/dL (12.0-16.0); IMM GRAN# 0.82 X1000 (0.0-0.04); IMM GRAN% 4.8 % (0.0-0.5); LYMPH# 1.23 X1000 (1.2-3.4); LYMPH% 7.1 % (20.5-51.1); MCH 26.4 PG (27-31); MCHC 25.6 g/dL (33-37); MCV 103.3 FL (81-99); MONO# 0.79 X1000 (0.11-0.59); MONO% 4.6 % (1.7-9.3); MPV 10.4 FL (7.4-10.4); NEUT% 83.1 % (42.2-75.2); PLT 141 X1000 (130-400); RDW 20.6 % (11.5-14.5); WBC 17.21 X1000 (4.8-10.8)
[2019-07-11 11:22] LABS: INR 0.89; PROTIME 12.2 Seconds (11.0-16.0); PTT 24.6 Seconds (22.3-41.8)
[2019-07-11 11:27] LABS: AGAP 9; ALB/GLOB RATIO 1.6; ALBUMIN 4.1 g/dL (3.5-5.0); ALKALINE PHOSPHATASE 72 U/L (32-104); BUN 12 mg/dL (8-22); CALCIUM 8.9 mg/dL (8.8-10.2); CHLORIDE 103 mmol/L (98-107); CK PROFILE 69 U/L (24-173); COSMO 295; CREATININE 0.6 mg/dL (0.5-0.9); ESTIMATED GFR > 60; GLUCOSE 175 mg/dL (70-104); GOT 21 U/L (10-30); GPT 15 U/L (10-36); POTASSIUM 4.4 mmol/L (3.5-5.1); SODIUM 146 mmol/L (136-145); TCO2 34 mmol/L (25-35); TOTAL BILIRUBIN 0.19 mg/dL (0.20-1.00); TOTAL PROTEIN 6.6 g/dL (6.3-8.3)
--- NOTE | 2019-07-11 12:31 | Diag Imaging Result Doc PS360 ---
EXAM: CHEST-1 VIEW HISTORY: resp distress TECHNIQUE: Single view COMPARISON: None. FINDINGS: The lungs are well expanded. The heart is enlarged. The vessels are mildly distended. There are no infiltrates. Minimal pleural fluid. IMPRESSION: Mild cardiomegaly with pulmonary edema Electronically signed by Baldemar Correia 07/11/2019 12:28 PM
[2019-07-11 12:56] LABS: URINE SOURCE CATH
[2019-07-11 12:59] LABS: BILIRUBIN URINE NEGATIVE (NEGATIVE); BLOOD URINE SMALL (NEGATIVE); COLOR YELLOW; GLUCOSE URINE NEGATIVE (NEGATIVE); KETONE URINE NEGATIVE (NEGATIVE); LEUKOCYTES URINE NEGATIVE (NEGATIVE); NITRITE URINE NEGATIVE (NEGATIVE); PH URINE 6.5; PROTEIN URINE 300 mg/dL (NEGATIVE); SP GRAVITY URINE 1.017; TURBIDITY URINE CLEAR (CLEAR); UROBILINOGEN URINE NORMAL (NORMAL)
[2019-07-11 13:01] LABS: UR EPITHELIAL CELLS <10 /HPF (<10); URINE BACTERIA NEGATIVE /HPF; URINE RBC <10 /HPF (<10); URINE WBC <10 /HPF (<10)
[2019-07-11 13:19] LABS: T4 6.02 ug/dL (4.60-12.00); TSH 0.43 uIUmL (0.27-4.20)
[2019-07-11 13:43] LABS: ALLEN TEST YES; BE 1.6 mmoll (-3.0-3.0); BLOOD TYPE ARTERIAL; METHB 1.7 % (0.0-1.5); O2(CT) 12.9 mL/dL (15.0-23.0); PO2(98.6) 82 mmHg (60-100); SAMPLE BLOOD; SAO2 96.7 % (95.0-100.0); SRATE 24 BPM; THB 10.5 g/dL (11.5-17.4)
[2019-07-11 13:47] LABS: MODALITY BI PAP
[2019-07-11 13:49] LABS: pH(98.6) 7.03 (7.35-7.45)
[2019-07-11 13:50] LABS: O2HB 86.8 % (95.0-99.0); PCO2(98.6) 133 mmHg (35-45)
[2019-07-11] MEDS ORDERED: DOPAMINE 400 MG/D5W 400 MG/500 ML IV.SOLN IV SCH (14:30)
--- NOTE | 2019-07-11 14:35 | Diag Imaging Result Doc PS360 ---
EXAM: CT HEAD W/O CONTRAST HISTORY: obtunded, hypothermic TECHNIQUE: CT head without contrast COMPARISON: 06/28/2019 FINDINGS: No parenchymal hemorrhage. No epidural or subdural hematoma. No subarachnoid hemorrhage. 8 to 9 mm partially calcified nodule along the anterior falx. No midline shift or adjacent edema. No hydrocephalus. No sinus opacification. IMPRESSION: 1.No hemorrhage 2.Likely small meningioma This exam was performed using automated exposure control, adjustment of mA or kV according to patient size, and/or use of iterative reconstruction technique. Electronically signed by Baldemar Correia 07/11/2019 2:33 PM
[2019-07-11] MEDS ORDERED: ATIVAN ONE ×2 (14:48→14:56)
[2019-07-11] MEDS ORDERED: ATIVAN IV ONE (14:53)
--- NOTE | 2019-07-11 15:54 | Diag Imaging Result Doc PS360 ---
EXAM: CHEST/ABD TUBE PLACEMENT HISTORY: tube placement. TECHNIQUE: Chest abdomen single view COMPARISON: 12:09 PM FINDINGS: An endotracheal tube has been placed since the prior exam. The tip is located 3 to 4 cm above the henry. A nasogastric tube has been placed as well. The distal portion coils at the gastroesophageal junction. The distal portion lies in the distal esophagus and does not enter the stomach. IMPRESSION: Nasogastric tube does not enter the stomach. Electronically signed by Baldemar Correia 07/11/2019 3:51 PM
[2019-07-11] MEDS ORDERED: DUONEB (A & A) INH PRN ×3 (16:57→23:34)
[2019-07-11] MEDS: DIPRIVAN 1% 1,000 MG/100 ML BOTTLE IV SCH ×2 (17:11→20:50)
--- NOTE | 2019-07-11 17:16 | Diag Imaging Result Doc PS360 ---
EXAM: CHEST/ABD TUBE PLACEMENT HISTORY: tube placement TECHNIQUE: Chest abdomen COMPARISON: 3:14 PM FINDINGS: Nasogastric tube along the greater curvature of the stomach in good position. Adjacent to this is an additional catheter entering the upper stomach. Electronically signed by Baldemar Correia 07/11/2019 5:14 PM
[2019-07-11] MEDS: PROTONIX IV SCH (17:23)
[2019-07-11] MEDS: SOLU-MEDROL IV SCH (17:23)
[2019-07-11] MEDS: LEVAQUIN 500 MG/D5W 500 MG/100 ML IVPB IV SCH (17:23)
[2019-07-11] MEDS: LOVENOX SUBQ SCH (17:23)
[2019-07-11] MEDS: AZACTAM 1 GM in NS 50 ML IV SCH (18:28)
--- NOTE | 2019-07-11 19:11 | HISTORY AND PHYSICAL ---
CHIEF COMPLAINT: Altered mental status, obtundation. HISTORY OF PRESENT ILLNESS: She is a 58-year-old white female recently discharged from the hospital for acute COPD exacerbation dependent on the ventilator support. As I said, I used to see here a long time ago in 2017. The family moved to [place], [place] and just moved back 2 weeks ago. She was discharged from the hospital. Came back with acute respiratory failure, metabolic encephalopathy, and CO2 narcosis. I did appreciate Dr. Tiwari's work in the emergency room. He spent a lot of time. Initially started on BiPAP. Subsequently was intubated. NG tube was placed. Steiner was placed. Blood pressure was dropping. Initially was given dopamine. She was agitated. Admitted in ICU in a critical condition and guarded with vasopressors and Diprivan drip. Pulmonary consult was obtained. As a result, a hospital admission was warranted. She did follow up in my office. She has oxygen. Unable to afford the inhalers. I gave her some samples. She has a lot of productive cough on Levaquin. PAST MEDICAL HISTORY: COPD dependent on the vent, hypertension, tobacco abuse, vitamin D deficiency, and neuropathy taking some gabapentin. PAST SURGICAL HISTORY: Appendectomy and hysterectomy. MEDICINES IN MY OFFICE: Breo 100/25 one puff daily, Lasix 40 mg daily, gabapentin 300 three times daily, losartan/hydrochlorothiazide 50/12.5 daily, ProAir, Spiriva inhalers, bronchodilators, and albuterol/Atrovent nebulizers. ALLERGIES: Reported to penicillin. SOCIAL HISTORY: second time. One daughter. Smoking 1 pack a day for last 30 years. No drug abuse. No alcohol. FAMILY HISTORY: Father of IA at 63. Mother of heart attack at 65. Siblings have with some cancers and heart attacks. Pneumococcal vaccine Prevnar was given last year. Colonoscopy 1999. REVIEW OF SYSTEMS: Not able to obtain. PHYSICAL EXAMINATION: GENERAL: She is intubated, restless, agitated. She is 5 feet 6 and 171 pounds. PULMONARY: Poor air entry. CARDIOVASCULAR: Distant heart sounds. ABDOMEN: Belly is soft and nontender. NEUROLOGIC: No obvious deficits noted. LABORATORIES: White cell count 17.2, hematocrit 43, MCV 103, platelet count 141,000. PT/INR is normal. ABG: pH is 7.03, pCO2 is 133, pO2 is 82. Carboxyhemoglobin 8.5. SMA- 7 is normal. Troponin is slightly elevated. CK is normal. STUDIES: CT head: No hemorrhage. Small meningioma. Chest x-ray: Mild cardiomegaly with pulmonary edema. ASSESSMENT AND PLAN: A 58-year-old white female admitted to the hospital basically with acute chronic obstructive pulmonary disease exacerbation, metabolic encephalopathy, carbon dioxide narcosis, productive cough, and ventilator support. Plan is Pulmonary consult and Diprivan since the patient is allergic to penicillin, Azactam and Levaquin, bronchodilators, and deep venous thrombosis and gastrointestinal prophylaxis with Lovenox and Protonix. Also check the proBNP, cardiac enzymes, and EKG in the morning. We will get an echo. Also need cardiac workup. She had some swelling of legs in my office. We will get the D-dimer. Also based on that further recommendations will be followed. We can discuss with the patient's family ongoing tobacco abuse. Chronic neuropathy pain on gabapentin. We will follow up. cc: Ángel Jenkins MD MTDD
[2019-07-12] MEDS: DIPRIVAN 1% 1,000 MG/100 ML BOTTLE IV SCH ×7 (00:22→23:07)
[2019-07-12] MEDS: SOLU-MEDROL IV SCH ×3 (00:33→16:41)
[2019-07-12] MEDS: AZACTAM 1 GM in NS 50 ML IV SCH ×3 (00:35→17:52)
[2019-07-12 05:01] LABS: ALLEN TEST YES; BE 6.7 mmoll (-3.0-3.0); BLOOD TYPE ARTERIAL; HCO3-(ACT) 30.1 mmoll (20.0-26.0); METHB 1.3 % (0.0-1.5); O2(CT) 14.7 mL/dL (15.0-23.0); O2HB 95.1 % (95.0-99.0); PCO2(98.6) 44 mmHg (35-45); PO2(98.6) 142 mmHg (60-100); SAMPLE BLOOD; SAO2 97.3 % (95.0-100.0); SRATE 24 BPM; THB 10.8 g/dL (11.5-17.4); TVOL 400 mL; pH(98.6) 7.46 (7.35-7.45)
[2019-07-12 05:03] LABS: MODALITY VENTILATOR
[2019-07-12 05:43] LABS: BASO# 0.01 X1000 (0.0-0.2); BASO% 0.1 % (0.0-0.8); HEMATOCRIT 38.8 % (37.0-47.0); HEMOGLOBIN 10.3 g/dL (12.0-16.0); IMM GRAN# 0.08 X1000 (0.0-0.04); IMM GRAN% 0.5 % (0.0-0.5); LYMPH# 0.62 X1000 (1.2-3.4); LYMPH% 3.9 % (20.5-51.1); MCH 26.3 PG (27-31); MCHC 26.5 g/dL (33-37); MONO% 1.9 % (1.7-9.3); MPV 10.9 FL (7.4-10.4); NEUT# 14.93 X1000 (1.4-6.5); NEUT% 93.6 % (42.2-75.2); PLT 145 X1000 (130-400); RBC 3.92 XMIL (4.2-5.4); RDW 21.1 % (11.5-14.5); WBC 15.94 X1000 (4.8-10.8)
--- NOTE | 2019-07-12 06:17 | EKG Report ---
Test Performed on : 07/12/2019 06:03:33 AM Test Reason : cp Blood Pressure : / mmHG Vent. Rate : 092 BPM Atrial Rate : 092 BPM P-R Int : 136 ms QRS Dur : 088 ms QT Int : 388 ms P-R-T Axes : 089 091 064 degrees QTc Int : 479 ms Normal sinus rhythm. Biatrial enlargement Pulmonary disease pattern Possible Right ventricular hypertrophy T wave abnormality, consider anterolateral ischemia Prolonged QT Abnormal ECG When compared with ECG of 28-JUN-2019 15:21, (Unconfirmed) Inverted T waves have replaced nonspecific T wave abnormality in Anterolateral leads QT has lengthened Confirmed by Abby PATEL, Phil Reed ([id number]) on 07/13/2019 9:25:25 AM
[2019-07-12 06:25] LABS: LYMPHS 4 % (21-51); MONO 4 % (1-9); SEGS 88 % (42-75)
[2019-07-12] MEDS: DUONEB (A & A) INH SCH ×4 (06:27→23:43)
[2019-07-12 06:35] LABS: AGAP 16; BUN 14 mg/dL (8-22); CALCIUM 9.1 mg/dL (8.8-10.2); CHLORIDE 100 mmol/L (98-107); COSMO 288; CREATININE 0.6 mg/dL (0.5-0.9); ESTIMATED GFR > 60; GLUCOSE 115 mg/dL (70-104); POTASSIUM 3.6 mmol/L (3.5-5.1); SODIUM 144 mmol/L (136-145); TCO2 28 mmol/L (25-35)
[2019-07-12] MEDS: LASIX IV SCH (08:18)
--- NOTE | 2019-07-12 08:21 | Diag Imaging Result Doc PS360 ---
EXAM: CHEST-1 VIEW - 07/12/2019 HISTORY: intubation TECHNIQUE: Portable one view chest COMPARISON: 07/11/2019 FINDINGS: There is been insertion of an endotracheal tube with its tip approximately 4.3 cm above the henry. There is a nasogastric tube which can be followed to the stomach. Heart size is normal. There is mild atelectasis or infiltrate at the left base. The remainder of the lungs appear essentially clear. There is no substantial pleural effusion or pneumothorax identified. IMPRESSION: Tip of endotracheal tube approximately 4.3 cm above the henry. Mild atelectasis or infiltrate at left base. Electronically signed by Jayant Baer 07/12/2019 8:18 AM
[2019-07-12] MEDS ORDERED: DUONEB (A & A) INH PRN (11:36)
--- NOTE | 2019-07-12 13:10 | PROGRESS NOTE ---
DATE: 07/12/2019 SUBJECTIVE: The patient is intubated and sedated well. Blood pressure is doing very well, and slow dose of vasopressor is given, and NG tube was placed, Steiner was placed. No edema noted. OBJECTIVE: Vital Signs: Temp is 99.9 degrees, pulse is 96. Vitals are stable. I's and O's show negative -1.5. Lungs: Bilateral air entry. Heart: Distant heart sounds. Abdomen: Belly is soft, nontender. Extremities: Decreased edema. IMAGING AND LABORATORY DATA: White cell count 15, hematocrit 38, platelets 145,000. ABG shows pH is 7.46, pCO2 of 44, PO2 of 142 on ventilator support, AC of 24, FiO2 of 50%, PEEP of 5, tidal volume 400. SMA-7 was normal. CK is normal. ProBNP 12,000. EKG was normal sinus with T-wave inversion in the anterior precordial leads. Chest x-ray: Mild atelectasis, infiltrate of the left base. ET tube, NG tube are placed. ASSESSMENT AND PLAN: 1. Acute respiratory failure due to chronic obstructive pulmonary disease with carbon dioxide narcosis. 2. Edema due to cor pulmonale. 3. Elevated proBNP and positive troponin. Electrocardiogram was normal. Rule out coronary artery disease. Plan of care is to continue ventilator support, probably decrease the rate as well as FiO2. Defer to the opinion of Dr. Lees. Continue on Diprivan for sedation. Cardiac workup needs to be done. Follow up on echocardiography. Deep venous thrombosis and gastrointestinal prophylaxis as per order sheet, and continue on Azactam, Levaquin, intravenous steroids, and bronchodilators. Condition is guarded. Will add a D-dimer tomorrow. Will follow up. LEVEL OF DOCUMENTATION: 25 minutes. cc: Ángel Jenkins MD
--- NOTE | 2019-07-12 15:51 | PULMONOLOGY CONSULTATION ---
DATE: 07/12/2019 REQUESTING PROVIDER: Dr. Ángel Jenkins. REASON FOR CONSULTATION: COPD. HISTORY OF PRESENT ILLNESS: This is a 58-year-old female who was admitted yesterday by Dr. Jenkins with acute respiratory failure, metabolic encephalopathy and carbon dioxide narcosis. The patient eventually was intubated in the ER. Her last admission to our facility was from 06/28/2019 to 07/03/2019 with acute respiratory failure secondary to COPD exacerbation requiring ventilator support from 06/28/2019 to 06/30/2019. She apparently developed shock and required dopamine drip in the ER which has been discontinued last night. Initial blood work also showed leukocytosis, significant hypercapnia with pCO2 143, and elevated troponin T high sensitivity at 35, otherwise nonsignificant. Initial chest x-ray revealed mild cardiomegaly with pulmonary edema and minimal pleural fluid. Patient currently staying intubated with AC setting of spontaneous rate 24, FiO2 50%, tidal volume 400 and PEEP 5. pCO2 has been significantly decreased to 44 this morning. The patient has a low grade fever at this time with temperature 100.4 degrees. We tried weaning off FiO2 down to 40%. However, patient cannot tolerate it. And we had to increase the FiO2 up to 60% and the tidal volume to 500. The patient is resting in bed with no acute distress noted. She is not responsive to verbal stimuli but tactile stimuli. She does not follow any simple commands. All information is obtained from the available clinical documentation. PAST MEDICAL HISTORY: 1. COPD. History of home oxygen therapy, unknown about home oxygen prior to admission. 2. Hypertension. 3. Hypothyroidism. 4. Ongoing tobacco use. The patient smokes 2 pack of cigarettes prior to admission and she has been smoking for over 30 years and she has no interest to quit smoking during the last admission. 5. Vitamin D deficiency. 6. History of hypoparathyroidism with mild hypocalcemia. 7. History of hyponatremia secondary to syndrome of inappropriate antidiuretic hormone secretion. 8. Recent hospitalization from 06/28/2019 07/03/2019 with acute respiratory failure secondary to COPD exacerbation and requiring ventilator support from 06/28/2019 to 06/30/2019. PAST SURGICAL HISTORY: Appendectomy and complete hysterectomy. SOCIAL HISTORY: The patient lives in [place]. She smokes 1 pack per day. She has been smoking more than 40 years. She does not drink any alcohol or use any illicit drugs. FAMILY HISTORY: Positive for COPD, massive heart attack and cancer. ALLERGIES: Penicillins and antihistamines. REVIEW OF SYSTEMS: Unable to be obtained as the patient is intubated and sedated. PHYSICAL EXAMINATION: Vital Signs: Temperature 99.9, blood pressure 123/72, pulse 96, respiratory rate 24, oxygen saturation 90% on AC with FiO2 40%, spontaneous rate 24, tidal volume 400 and PEEP 5. General: Intubated, lying in bed with no acute distress noted. HEENT: Atraumatic, normocephalic. Trachea midline. Mucosa pink and moist. ET tube in place. Pupils: Equal, round, reactive to light. Respiratory: Mechanically ventilated. Symmetrical excursion. Moderate to severe expiratory wheezing bilaterally with prolonged expiratory phase. Cardiovascular: Regular rate and rhythm with S1, S2 appreciated. Gastrointestinal: Soft, nontender, nondistended. Normoactive bowel sounds in all 4 quadrants. Extremities: Bilateral lower extremity trace edema. Neurologic: Sedated, nonresponsive to verbal stimuli, responsive to tactile stimuli. IMAGING DATA: Chest x-ray this morning showed tip of endotracheal tube approximately 4.3 cm above the henry. Mild atelectasis or infiltrate at the left base. ASSESSMENT: This is a 58-year-old female with a medical history of chronic obstructive pulmonary disease, hypertension, hypothyroidism, ongoing tobacco use, vitamin D deficiency, history of hypoparathyroidism with mild hypocalcemia, history of hyponatremia secondary to syndrome of inappropriate antidiuretic hormone secretion and recent hospital admission from 06/28/2019 to 07/03/2019 with acute respiratory failure secondary to chronic obstructive pulmonary disease exacerbation and requiring ventilator support from 06/28/2019 to 06/30/2019. She has been directly admitted since yesterday by Dr. Jenkins with significant carbon dioxide narcosis, chronic obstructive pulmonary disease exacerbation and metabolic encephalopathy. She eventually required intubation with pressor support for shock. 1. Acute respiratory failure, hypoxic and hypercapnic requiring intubation. 2. Chronic obstructive pulmonary disease exacerbation. 3. Shock at representation. Blood pressure currently under control. The patient required a dopamine drip initially which has been discontinued since last night. 4. Possible acute cor pulmonale with significantly elevated proBNP, elevated troponin, mild cardiomegaly and pulmonary edema. 5. Mild atelectasis or infiltrate at the left base. The possibility of pneumonia cannot be ruled out. Patient has leukocytosis and fever. Blood culture has no growth at this time. Influenza screen is negative. Urinalysis appears free of infection. Sputum culture has been ordered, but not collected yet. PLAN: 1. Continue full ventilatory support at this time. We reviewed and titrated ventilator settings to patient's needs per clinical protocols. We will monitor patient's response closely and adjust accordingly. We will follow ABG and chest x-ray tomorrow. 2. We review and titrated Diprivan drip to the patient's needs for sedation per clinical protocols. WE will monitor the patient's response closely and adjust accordingly. 3. Antibiotics including aztreonam and Levaquin has been initiated yesterday. We will continue these 2 antibiotics and monitor patient's clinical and lab response closely. 4. IV Solu-Medrol started since admission at 60 mg q.8 hours. Will continue this dosage. 5. Will adjust breathing treatments from q.6 hours as needed to scheduled q.4 hours and q.2 hours as needed. 6. Continue GI prophylaxis with Protonix and DVT prophylaxis with Lovenox. 7. Smoking cessation education when appropriate. 8. Further recommendations pending hospital course. Thank you for the courtesy of this consult. TIME SPENT: Total evaluation time in minutes: 35. Dictated by MADINA Bhat for Hanh Lees MD cc: MADINA Bhat MD Jagan Reddy, MD [facility]
[2019-07-12] MEDS: PROTONIX IV SCH (16:41)
[2019-07-12] MEDS: LEVAQUIN 500 MG/D5W 500 MG/100 ML IVPB IV SCH (16:41)
[2019-07-12] MEDS: SODIUM CHLORIDE 0.9% INJ SCH (16:41)
[2019-07-12] MEDS: LOVENOX SUBQ SCH (16:41)
[2019-07-13] MEDS: SOLU-MEDROL IV SCH ×3 (01:56→16:37)
[2019-07-13] MEDS: DIPRIVAN 1% 1,000 MG/100 ML BOTTLE IV SCH ×7 (02:15→21:48)
[2019-07-13] MEDS: AZACTAM 1 GM in NS 50 ML IV SCH ×3 (02:36→17:00)
[2019-07-13] MEDS: DUONEB (A & A) INH SCH ×7 (03:10→23:05)
[2019-07-13 05:05] LABS: ALLEN TEST YES; BE 10.1 mmoll (-3.0-3.0); BLOOD TYPE ARTERIAL; HCO3-(ACT) 32.8 mmoll (20.0-26.0); METHB 0.7 % (0.0-1.5); O2(CT) 14.6 mL/dL (15.0-23.0); O2HB 96.3 % (95.0-99.0); PCO2(98.6) 38 mmHg (35-45); PO2(98.6) 94 mmHg (60-100); SAMPLE BLOOD; SAO2 98.2 % (95.0-100.0); SRATE 24 BPM; THB 10.7 g/dL (11.5-17.4); TVOL 500 mL; pH(98.6) 7.55 (7.35-7.45)
[2019-07-13 05:07] LABS: MODALITY VENTILATOR
[2019-07-13 06:30] LABS: AGAP 18; BASO# 0.02 X1000 (0.0-0.2); BASO% 0.1 % (0.0-0.8); BUN 17 mg/dL (8-22); CALCIUM 9.1 mg/dL (8.8-10.2); CHLORIDE 93 mmol/L (98-107); COSMO 283; CREATININE 0.6 mg/dL (0.5-0.9); EOS# 0.01 X1000 (0.0-0.7); EOS% 0.1 % (0.0-10.0); ESTIMATED GFR > 60; GLUCOSE 129 mg/dL (70-104); HEMATOCRIT 36.9 % (37.0-47.0); HEMOGLOBIN 10.6 g/dL (12.0-16.0); LYMPH# 0.75 X1000 (1.2-3.4); LYMPH% 4.4 % (20.5-51.1); MCH 26.7 PG (27-31); MCHC 28.7 g/dL (33-37); MCV 92.9 FL (81-99); MONO# 0.79 X1000 (0.11-0.59); MONO% 4.6 % (1.7-9.3); MPV 11.5 FL (7.4-10.4); NEUT# 15.64 X1000 (1.4-6.5); NEUT% 90.8 % (42.2-75.2); PLT 246 X1000 (130-400); POTASSIUM 2.6 mmol/L (3.5-5.1); RBC 3.97 XMIL (4.2-5.4); RDW 21.9 % (11.5-14.5); SODIUM 140 mmol/L (136-145); TCO2 29 mmol/L (25-35); WBC 17.21 X1000 (4.8-10.8)
--- NOTE | 2019-07-13 07:22 | Diag Imaging Result Doc PS360 ---
EXAM: CHEST-1 VIEW INDICATION: intubation TECHNIQUE: One view COMPARISON: 07/12/2019 FINDINGS: Support tubes and lines are in stable positions. The patient is slightly rotated toward the left. There is slight increased opacity at the left lung base as compared to the previous study. This could be positional, however. No other new consolidation is identified. Cardiac silhouette is stable. IMPRESSION: Slight increased opacity at the left lung base as described. Stable chest, otherwise. Electronically signed by Rick Munoz 07/13/2019 7:20 AM
[2019-07-13] MEDS: LASIX IV SCH (08:06)
--- NOTE | 2019-07-13 08:16 | EKG Report ---
Test Performed on : 07/11/2019 11:45:10 AM Test Reason : ED. NO EKG ORDER FOR MUSE Blood Pressure : / mmHG Vent. Rate : 075 BPM Atrial Rate : 075 BPM P-R Int : 164 ms QRS Dur : 096 ms QT Int : 406 ms P-R-T Axes : 073 070 088 degrees QTc Int : 453 ms Normal sinus rhythm. RSR' or QR pattern in V1 suggests right ventricular conduction delay ST & T wave abnormality, consider anterior ischemia Abnormal ECG No previous ECGs available Unconfirmed Result
[2019-07-13] MEDS: CLINIMIX E 4.25%-5% SOLUTION 1,000 ML IV SCH (09:30)
[2019-07-13] MEDS: POTASSIUM CHLORIDE 40 MEQ/SWI 40 MEQ/100 ML IVPB IV SCH ×2 (09:30→15:09)
--- NOTE | 2019-07-13 16:10 | PROVIDER PROGRESS NOTE ---
Progress Note Dr. Lees Progress Note/Pulmonary and or critical care Subjective: Patient stays intubated. She is on FiO2 60% with SaO2 in low 90s. She is havign low-grade fever with temperature 100.0 at this time. She is also having mild tachycardia and tachypnea. She is on 2-point restraint. Input was appreciated from Dr. Jenkins and other teams on the case. Objective: Vital Signs: T 100.0, AK 99, RR 24, BP 92/62 and SaO2 94% on AC 24, 60%, 500, 5. I/O:-1558 ml. Physical Examination: General: Intubated. 2-point restraint. Lying in bed on ventilator with no acute distress noted. HEENT: Atraumatic. Normocephalic. Trachea midline. Mucosa pink and moist. ET tube in place. PERRL. Respiratory: Mechanically ventilated. Symmetrical excursion. Moderate to severe expiratory wheezing bilaterally with prolonged expiratory phase. Cardiovascular: S1 and S2 appreciated. Gastrointestinal: Soft. Nondistended. Normoactive bowel sounds in all 4 quadrants. Extremities: BLE trace edema. No clubbing or cyanosis noted. Neurologic: Sedated, but arousable. Responsive to verbal stimuli and tactile stimuli. Labs and Radiology: Laboratory Results 07/12/19 07/13/19 07/13/19 22:00 04:55 05:30 WBC RBC Hgb Hct MCV MCH MCHC RDW Std Deviation Plt Count MPV Neut % (Auto) Lymph % (Auto) [place] % (Auto) Eos % (Auto) Baso % (Auto) Neut # (Auto) Lymph # (Auto) [place] # (Auto) Eos # (Auto) Baso # (Auto) D-Dimer, Quantitative Specimen Type ARTERIAL Sample Site R RADIAL pH 7.55 H pCO2 38 pO2 94 HCO3 32.8 H Base Excess 10.1 H Oxyhemoglobin 96.3 ABG O2 Sat (Calculated) 14.6 L ABG O2 Saturation 98.2 ABG Carboxyhemoglobin 1.30 ABG Methemoglobin 0.7 Phil Test YES A-a O2 Difference 286.0 Total Hemoglobin 10.7 L Lactate 1.30 Blood Gas Modality VENTILATOR Vent Mode A/C Spontaneous Rate 24 FiO2 % 60.0 Tidal Volume 500 PEEP 5.0 Sodium 140 Potassium 2.6 L D Chloride 93 L Carbon Dioxide 29 Anion Gap 18 BUN 17 Creatinine 0.6 Estimated GFR/1.73 m2 > 60 BUN/Creatinine Ratio 28 Glucose 129 H Calculated Osmolality 283 Calcium 9.1 Creatine Kinase 88 07/13/19 07/13/19 05:30 05:30 WBC 17.21 H RBC 3.97 L Hgb 10.6 L Hct 36.9 L MCV 92.9 MCH 26.7 L MCHC 28.7 L RDW Std Deviation 21.9 H Plt Count 246 D MPV 11.5 H Neut % (Auto) 90.8 H Lymph % (Auto) 4.4 L [place] % (Auto) 4.6 Eos % (Auto) 0.1 Baso % (Auto) 0.1 Neut # (Auto) 15.64 H Lymph # (Auto) 0.75 L [place] # (Auto) 0.79 H Eos # (Auto) 0.01 Baso # (Auto) 0.02 D-Dimer, Quantitative 0.42 Specimen Type Sample Site pH pCO2 pO2 HCO3 Base Excess Oxyhemoglobin ABG O2 Sat (Calculated) ABG O2 Saturation ABG Carboxyhemoglobin ABG Methemoglobin Phil Test A-a O2 Difference Total Hemoglobin Lactate Blood Gas Modality Vent Mode Spontaneous Rate FiO2 % Tidal Volume PEEP Sodium Potassium Chloride Carbon Dioxide Anion Gap BUN Creatinine Estimated GFR/1.73 m2 BUN/Creatinine Ratio Glucose Calculated Osmolality Calcium Creatine Kinase Assessment: Acute hypoxemic hypercapnic respiratory failure. Intubated on 07/11/19. COPD exacerbation. Shock at presentation. Stays off pressor. Possible acute cor pulmonale with significantly elevated proBNP, elevated troponin, mild cardiomegaly and pulmonary edema. Mild atelectasis or infiltrate at the left base. The possibility of pneumonia cannot be ruled out. Leukocytosis and fever are improving. Blood cultures on 07/11/19 have no growth. Influenza screen is negative. Urinalysis appears free of infection. Sputum culture collected on 07/12/19 has no growth. CXR today shows slight increased opacity at the left lung base. Plan: Continue full ventilatory support. We titrated ventilator settings to patients needs per clinical protocols. We will monitor patients response closely. We follow up ABG tomorrow. We titrated sedative (Diprivan drip) to patients needs per clinical protocols. We will monitor patients response closely and adjust accordingly. Continue Antibiotics including Aztreonam and Levaquin. We will keep monitoring patient's clinical and lab response closely. Continue IV Solu-Medrol 60 mg Q8H. Continue bronchodilators. Continue GI and DVT prophylaxis. Critical care time in minutes: 33.
[2019-07-13] MEDS: LEVAQUIN 500 MG/D5W 500 MG/100 ML IVPB IV SCH (16:37)
[2019-07-13] MEDS: PROTONIX IV SCH (16:37)
[2019-07-13] MEDS: LOVENOX SUBQ SCH (16:37)
--- NOTE | 2019-07-13 19:40 | PROGRESS NOTE ---
DATE: 07/13/2019 SUBJECTIVE: The patient is still under the ventilator support. FiO2 has gone high since low saturations. I appreciate Dr. Lees's consult. OBJECTIVE: Vital signs: Tachycardic. Vitals are stable. She is on Diprivan. Lungs: Bilateral air entry. Cardiovascular: Distant heart sounds. Abdomen: Belly is soft, nontender. Extremities: No edema noted. INVESTIGATIONS: White cell count 17, hematocrit 36, platelets 246,000. D-dimer is 0.42. ABG: pH is 7.55, pCO2 38, pO2 94, assisted control FiO2 60%. SMA 7: Potassium 2.6. Chest x-ray: Slightly increased opacity in the left lung base. EKG showed normal sinus with T-wave inversions in the anterior precordial leads, elevated proBNP. ASSESSMENT AND PLAN: 1. Acute respiratory failure due to chronic obstructive pulmonary disease on ventilator support as per Dr. Lees. 2. D-dimer is negative. No need for venous Doppler. 3. Hypokalemia. Replace the potassium. Discontinue Lasix. Continue IV antibiotics with Azactam, Levaquin, and IV steroids. 4. Deep venous thrombosis and gastrointestinal prophylaxis as per order sheet. Continue on propofol drip. Continue to follow up on the labs and elevated proBNP. 5. Abnormal EKG. We will get the echocardiography findings and continue present treatment. LEVEL OF DOCUMENTATION: 25 minutes. cc: MD UZMA Ramirez
[2019-07-14] MEDS: SOLU-MEDROL IV SCH ×3 (00:42→15:59)
[2019-07-14] MEDS: AZACTAM 1 GM in NS 50 ML IV SCH ×3 (01:28→16:59)
[2019-07-14] MEDS: DIPRIVAN 1% 1,000 MG/100 ML BOTTLE IV SCH ×7 (01:29→22:41)
[2019-07-14] MEDS: DUONEB (A & A) INH SCH ×6 (03:07→23:35)
[2019-07-14 04:45] LABS: ALLEN TEST YES; BE 12.5 mmoll (-3.0-3.0); BLOOD TYPE ARTERIAL; HCO3-(ACT) 34.6 mmoll (20.0-26.0); METHB 1.2 % (0.0-1.5); O2(CT) 15.6 mL/dL (15.0-23.0); O2HB 92.9 % (95.0-99.0); PCO2(98.6) 40 mmHg (35-45); PO2(98.6) 68 mmHg (60-100); SAMPLE BLOOD; SAO2 94.9 % (95.0-100.0); SRATE 24 BPM; THB 11.9 g/dL (11.5-17.4); TVOL 500 mL
[2019-07-14 04:46] LABS: MODALITY VENTILATOR; pH(98.6) 7.56 (7.35-7.45)
[2019-07-14 05:15] LABS: BASO# 0.03 X1000 (0.0-0.2); BASO% 0.1 % (0.0-0.8); HEMATOCRIT 38.8 % (37.0-47.0); HEMOGLOBIN 11.4 g/dL (12.0-16.0); IMM GRAN# 0.07 X1000 (0.0-0.04); IMM GRAN% 0.3 % (0.0-0.5); LYMPH# 0.22 X1000 (1.2-3.4); MCH 26.5 PG (27-31); MCHC 29.4 g/dL (33-37); MONO# 0.72 X1000 (0.11-0.59); MONO% 3.4 % (1.7-9.3); MPV 10.4 FL (7.4-10.4); NEUT# 20.27 X1000 (1.4-6.5); NEUT% 95.2 % (42.2-75.2); PLT 347 X1000 (130-400); RBC 4.31 XMIL (4.2-5.4); RDW 21.7 % (11.5-14.5); WBC 21.31 X1000 (4.8-10.8)
[2019-07-14] MEDS: CLINIMIX E 4.25%-5% SOLUTION 1,000 ML IV SCH (05:23)
--- NOTE | 2019-07-14 05:26 | ECHO REPORT ---
ORDER DATE: 07/11/2019 MEASUREMENTS: 1. Septal thickness 0.8. 2. Left ventricular internal diameter in diastole 4.5. 3. Posterior wall thickness 0.7. 4. Left ventricular internal diameter in systole 2.8. 5. Aortic root 2.8. 6. Left atrium 3.1 SUMMARY: 1. Technically difficult study due to limited acoustic window quality. 2. The aortic valve is trileaflet and opens normally on 2-dimensional images. Peak gradient across aortic valve is less than 10 mmHg. 3. Tricuspid and pulmonic valves are without evidence of structural abnormality with trace mitral regurgitation. The aortic root is normal in size. 4. Normal left ventricular dimensions demonstrated. Estimated left ejection fraction is approximately 70%. No regional wall motion abnormalities evident. Left atrium, right atrium, and right ventricle are grossly normal in size with grossly preserved right ventricular systolic function. 5. Small posterior pericardial effusion demonstrated without evidence of hemodynamic impact by echocardiographic criteria. 6. Appearance of inferior vena cava suggests normal central venous pressure. CONCLUSIONS: 1. Technically difficult study. 2. No significant valvular abnormality evident. 3. Normal left ventricular systolic function without regional wall motion abnormality evident. 4. Small posterior pericardial effusion without echocardiographic evidence of hemodynamic impact. cc: MD Ángel Chris MD
[2019-07-14 05:31] LABS: AGAP 16; BUN 23 mg/dL (8-22); CALCIUM 9.1 mg/dL (8.8-10.2); CHLORIDE 88 mmol/L (98-107); COSMO 282; CREATININE 0.6 mg/dL (0.5-0.9); ESTIMATED GFR > 60; GLUCOSE 213 mg/dL (70-104); POTASSIUM 3.6 mmol/L (3.5-5.1); SODIUM 136 mmol/L (136-145); TCO2 32 mmol/L (25-35)
--- NOTE | 2019-07-14 06:38 | Diag Imaging Result Doc PS360 ---
EXAM: CHEST-1 VIEW HISTORY: intubation TECHNIQUE: Single view COMPARISON: 07/13/2019 FINDINGS: No change in the endotracheal tube or catheter is in the esophagus and stomach. The lungs are well expanded mildly prominent heart. No pulmonary edema. Left basilar infiltrate and/or atelectasis. IMPRESSION: Stable chest Electronically signed by Baldemar Correia 07/14/2019 6:36 AM
[2019-07-14 07:55] LABS: LYMPHS 2 % (21-51); MONO 2 % (1-9); SEGS 96 % (42-75)
[2019-07-14 07:56] LABS: ANISOCYTOSIS 2+; HYPOCHROM 2+
[2019-07-14] MEDS ORDERED: LASIX IV ONE (11:13)
[2019-07-14] MEDS: SODIUM CHLORIDE 0.9% INJ SCH (15:57)
[2019-07-14] MEDS: PROTONIX IV SCH (15:57)
[2019-07-14] MEDS: LEVAQUIN 500 MG/D5W 500 MG/100 ML IVPB IV SCH (15:57)
[2019-07-14] MEDS: LOVENOX SUBQ SCH (15:57)
--- NOTE | 2019-07-14 18:02 | PROVIDER PROGRESS NOTE ---
Progress Note Dr. Lees Progress Note/Pulmonary and or critical care Subjective: Patient stays intubated. Fever has been improved. She still has some mild tachycardia at times. Input was appreciated from Dr. Jenkins and other teams on the case. Objective: Vital Signs: T 98.8 (T-max 99.7 in last 24 hours), ID 96, RR 24, BP 113/64 and SaO2 94% on AC 24, 60%, 500, 5. I/O:+281 ml. Physical Examination: General: Intubated. 2-point restraint. Lying in bed on ventilator with no acute distress noted. HEENT: Atraumatic. Normocephalic. Trachea midline. Mucosa pink and moist. ET tube in place. PERRL. Respiratory: Mechanically ventilated. Symmetrical excursion. Good air entry bilaterally with no wheezing noted. Cardiovascular: S1 and S2 appreciated. Gastrointestinal: Soft. Nondistended. Normoactive bowel sounds in all 4 quadrants. Extremities: BLE trace edema. No clubbing or cyanosis noted. Neurologic: Sedated, but arousable. Responsive to verbal stimuli and tactile stimuli. Labs and Radiology: Laboratory Results 07/14/19 07/14/19 07/14/19 04:00 05:00 05:00 WBC 21.31 H RBC 4.31 Hgb 11.4 L Hct 38.8 MCV 90.0 MCH 26.5 L MCHC 29.4 L RDW Std Deviation 21.7 H Plt Count 347 D MPV 10.4 Immature Gran % (Auto) 0.3 Neut % (Auto) 95.2 H Lymph % (Auto) 1.0 L [place] % (Auto) 3.4 Eos % (Auto) 0.0 Baso % (Auto) 0.1 Immature Gran # (Auto) 0.07 H Neut # (Auto) 20.27 H Lymph # (Auto) 0.22 L [place] # (Auto) 0.72 H Eos # (Auto) 0.00 Baso # (Auto) 0.03 Segmented Neutrophils 96 H Lymphocytes 2 L Monocytes 2 Hypochromia 2+ Anisocytosis 2+ Specimen Type ARTERIAL Sample Site R RADIAL pH 7.56 H* pCO2 40 pO2 68 HCO3 34.6 H Base Excess 12.5 H Oxyhemoglobin 92.9 L ABG O2 Sat (Calculated) 15.6 ABG O2 Saturation 94.9 L ABG Carboxyhemoglobin 0.80 ABG Methemoglobin 1.2 Phil Test YES A-a O2 Difference 310.0 Total Hemoglobin 11.9 Lactate 1.80 Blood Gas Modality VENTILATOR Spontaneous Rate 24 FiO2 % 60.0 Tidal Volume 500 PEEP 5.0 Sodium 136 Potassium 3.6 D Chloride 88 L Carbon Dioxide 32 Anion Gap 16 BUN 23 H Creatinine 0.6 Estimated GFR/1.73 m2 > 60 BUN/Creatinine Ratio 38 Glucose 213 H D Calculated Osmolality 282 Calcium 9.1 Assessment: Acute hypoxemic hypercapnic respiratory failure. Intubated on 07/11/19. No improvement in last 2 days. COPD exacerbation. Shock at presentation. Stays off pressor. Possible acute cor pulmonale with significantly elevated proBNP, elevated troponin, mild cardiomegaly and pulmonary edema. Mild atelectasis or infiltrate at the left base. The possibility of pneumonia cannot be ruled out. Leukocytosis and fever are improving. Blood cultures on 07/11/19 have no growth. Influenza screen is negative. Urinalysis appears free of infection. Sputum culture collected on 07/12/19 has no growth. CXR today shows stable left basilar infiltrate +/- atelectasis. Worsening leukocytosis likely secondary to IV Solu-Medrol. Plan: Continue full ventilatory support. We start weaning trials tomorrow if indicated. We titrated ventilator settings to patients needs per clinical protocols. We will monitor patients response closely. We follow up ABG tomorrow. We titrated sedative (Diprivan drip) to patients needs per clinical protocols. We will monitor patients response closely and adjust accordingly. Continue Antibiotics including Aztreonam and Levaquin. We will keep monitoring patient's clinical and lab response closely. Continue IV Solu-Medrol. We decrease the dosage to 60 mg q8h at this time. Continue bronchodilators. Continue GI and DVT prophylaxis. We give Lasix 60 mg for diuresis today. Critical care time in minutes: 32.
--- NOTE | 2019-07-14 19:30 | PROGRESS NOTE ---
DATE: 07/14/2019 SUBJECTIVE: The patient remains on the vent requiring high FiO2. Chest x-ray showing some possible infiltrate. She was ultimately sedated, intubated. No history was obtained. I's and O's -1L. And she is basically intubated. Bilateral air entry. Heart sounds are regular. Belly is soft, nontender. No edema noted. INVESTIGATIONS: White cell count 21, hematocrit 38, platelets 347,000. ABG: PH is 7.56, pCO2 40, PO2 68 on 60%. SMA 7 is normal, proBNP 12,000. D-dimer is negative. Sputum cultures negative. Blood cultures are negative. Chest x-ray reported stable chest, left basilar infiltrate, atelectasis. ASSESSMENT AND PLAN: 1. Acute respiratory failure on the vent as per Dr. Lees. 2. D-dimer is negative. We will hold off on the Dopplers. 3. Edema is improved. Discontinue the Lasix. 4. Intravenous peripheral parenteral nutrition. 5. Continue IV antibiotics with Levaquin and Azactam. 6. Intravenous steroids. 7. Deep vein thrombosis and gastrointestinal prophylaxis as per order sheet. 8. Elevated proBNP, probably cor pulmonale. Echocardiography findings reassuring. Left ventricular function is 70%. Abnormal electrocardiogram. At some point needs cardiac work up for R/O Coronary artery disease and we will check the labs in the morning. 10. Poor IV access. We will schedule for a peripherally inserted central catheter line and we will follow up. LEVEL OF DOCUMENTATION: 25 minutes. cc: Ángel Jenkins MD MTDD
[2019-07-15] MEDS: SOLU-MEDROL IV SCH ×3 (01:05→20:20)
[2019-07-15] MEDS: AZACTAM 1 GM in NS 50 ML IV SCH ×3 (01:05→17:06)
[2019-07-15] MEDS: CLINIMIX E 4.25%-5% SOLUTION 1,000 ML IV SCH ×2 (01:05→20:20)
[2019-07-15] MEDS: DIPRIVAN 1% 1,000 MG/100 ML BOTTLE IV SCH ×2 (02:50→06:19)
[2019-07-15] MEDS: DUONEB (A & A) INH SCH ×6 (03:40→22:42)
[2019-07-15 05:13] LABS: ALLEN TEST YES; BE 15.3 mmoll (-3.0-3.0); BLOOD TYPE ARTERIAL; HCO3-(ACT) 36.8 mmoll (20.0-26.0); METHB 1.4 % (0.0-1.5); O2(CT) 17.2 mL/dL (15.0-23.0); O2HB 94.8 % (95.0-99.0); PCO2(98.6) 48 mmHg (35-45); PO2(98.6) 117 mmHg (60-100); SAMPLE BLOOD; SAO2 96.8 % (95.0-100.0); SRATE 14 BPM; THB 12.8 g/dL (11.5-17.4); TVOL 500 mL; pH(98.6) 7.53 (7.35-7.45)
[2019-07-15 05:17] LABS: MODALITY VENTILATOR
--- NOTE | 2019-07-15 06:28 | Diag Imaging Result Doc PS360 ---
EXAM: CHEST-1 VIEW 07/15/2019 HISTORY: SOB TECHNIQUE: AP portable at 0528 COMMENT: There is an endotracheal tube with its tip slightly below the thoracic inlet and an NG tube with its tip in the stomach. There is dense opacification of the retrocardiac left lower lobe. This was also the case on 07/14/2019. IMPRESSION: Left lower lobe pneumonia. Electronically signed by Ajay Mccarty 07/15/2019 6:25 AM
[2019-07-15 06:37] LABS: ESTIMATED GFR > 60
[2019-07-15 06:53] LABS: AGAP 14; BUN 30 mg/dL (8-22); CALCIUM 8.8 mg/dL (8.8-10.2); CHLORIDE 87 mmol/L (98-107); COSMO 287; CREATININE 0.6 mg/dL (0.5-0.9); GLUCOSE 196 mg/dL (70-104); POTASSIUM 3.1 mmol/L (3.5-5.1); SODIUM 138 mmol/L (136-145); TCO2 37 mmol/L (25-35)
[2019-07-15 08:35] LABS: INR 0.94; PROTIME 12.6 Seconds (11.0-16.0)
[2019-07-15] MEDS ORDERED: NS 250 ML ONE (08:46)
[2019-07-15] MEDS: POTASSIUM CHLORIDE 20 MEQ/SWI 20 MEQ/100 ML IVPB IV SCH ×2 (08:46→10:19)
[2019-07-15 08:55] LABS: BASO# 0.03 X1000 (0.0-0.2); BASO% 0.1 % (0.0-0.8); EOS# 0.02 X1000 (0.0-0.7); EOS% 0.1 % (0.0-10.0); HEMATOCRIT 38.5 % (37.0-47.0); HEMOGLOBIN 11.1 g/dL (12.0-16.0); LYMPH# 0.38 X1000 (1.2-3.4); LYMPH% 1.8 % (20.5-51.1); MCH 26.6 PG (27-31); MCHC 28.8 g/dL (33-37); MCV 92.3 FL (81-99); MONO# 0.93 X1000 (0.11-0.59); MONO% 4.5 % (1.7-9.3); MPV 11.1 FL (7.4-10.4); NEUT# 19.33 X1000 (1.4-6.5); NEUT% 93.5 % (42.2-75.2); PLT 423 X1000 (130-400); RBC 4.17 XMIL (4.2-5.4); RDW 21.8 % (11.5-14.5); WBC 20.69 X1000 (4.8-10.8)
[2019-07-15 09:22] LABS: BANDS 2 % (0-1); HYPOCHROM 1+; LYMPHS 4 % (21-51); POIKILOCYTOSIS 1+; SEGS 94 % (42-75)
[2019-07-15 11:47] LABS: ALLEN TEST NO; BE 16.9 mmoll (-3.0-3.0); BLOOD TYPE ARTERIAL; METHB 1.1 % (0.0-1.5); O2HB 90.3 % (95.0-99.0); PO2(98.6) 57 mmHg (60-100); SAMPLE BLOOD; SAO2 92.7 % (95.0-100.0); THB 11.8 g/dL (11.5-17.4); pH(98.6) 7.51 (7.35-7.45)
[2019-07-15 11:51] LABS: MODALITY VENTILATOR; PCO2(98.6) 53 mmHg (35-45)
[2019-07-15] MEDS ORDERED: POTASSIUM CHLORIDE 60 MEQ in NS 500 ML IV ONE (15:06)
[2019-07-15 16:45] LABS: ALLEN TEST NO; BE 17.8 mmoll (-3.0-3.0); BLOOD TYPE ARTERIAL; HCO3-(ACT) 38.7 mmoll (20.0-26.0); METHB 1.3 % (0.0-1.5); O2(CT) 15.3 mL/dL (15.0-23.0); O2HB 92.1 % (95.0-99.0); PO2(98.6) 71 mmHg (60-100); SAMPLE BLOOD; SAO2 94.8 % (95.0-100.0); THB 11.8 g/dL (11.5-17.4); pH(98.6) 7.47 (7.35-7.45)
[2019-07-15] MEDS: LEVAQUIN 500 MG/D5W 500 MG/100 ML IVPB IV SCH (16:47)
[2019-07-15] MEDS: PROTONIX IV SCH (16:47)
[2019-07-15] MEDS: SODIUM CHLORIDE 0.9% INJ SCH (16:47)
[2019-07-15] MEDS: LOVENOX SUBQ SCH (16:47)
[2019-07-15 16:49] LABS: MODALITY COOL AEROSOL; PCO2(98.6) 61 mmHg (35-45)
[2019-07-15] MEDS ORDERED: HALDOL IV PRN (17:07)
--- NOTE | 2019-07-15 18:44 | PROVIDER PROGRESS NOTE ---
Progress Note Dr. Lees Progress Note/Pulmonary and or critical care Subjective: Patient stays intubated. Weaning trials started this morning with followup ABG results posted. She is awake and communicative with good cough effort. Input was appreciated from Dr. Jenkins and other teams on the case. Objective: Vital Signs: No fever in last 24 hours, DE 66, RR 14, BP 126/59 and SaO2 97% on AC 14, 50%, 500, 5. I/O:-680 ml. Physical Examination: General: Intubated. 2-point restraint. Lying in bed on ventilator with no acute distress noted. HEENT: Atraumatic. Normocephalic. Trachea midline. Mucosa pink and moist. ET tube in place. PERRL. Respiratory: Mechanically ventilated. Symmetrical excursion. Good air entry bilaterally with no wheezing noted. Cardiovascular: S1 and S2 appreciated. Gastrointestinal: Soft. Nondistended. Normoactive bowel sounds in all 4 gail drants. Extremities: BLE trace edema. No clubbing or cyanosis noted. Neurologic: Awake and alert. Communicative. Labs and Radiology: Laboratory Results 07/15/19 07/15/19 07/15/19 04:40 04:40 04:40 WBC 20.69 H RBC 4.17 L Hgb 11.1 L Hct 38.5 MCV 92.3 MCH 26.6 L MCHC 28.8 L RDW Std Deviation 21.8 H Plt Count 423 H MPV 11.1 H Neut % (Auto) 93.5 H Lymph % (Auto) 1.8 L [place] % (Auto) 4.5 Eos % (Auto) 0.1 Baso % (Auto) 0.1 Neut # (Auto) 19.33 H Lymph # (Auto) 0.38 L [place] # (Auto) 0.93 H Eos # (Auto) 0.02 Baso # (Auto) 0.03 Segmented Neutrophils 94 H Band Neutrophils 2 H Lymphocytes 4 L Hypochromia 1+ Poikilocytosis 1+ PT 12.6 INR 0.94 Specimen Type Sample Site pH pCO2 pO2 HCO3 Base Excess Oxyhemoglobin ABG O2 Sat (Calculated) ABG O2 Saturation ABG Carboxyhemoglobin ABG Methemoglobin Phil Test A-a O2 Difference Total Hemoglobin Lactate Liter Flow Blood Gas Modality Vent Mode Spontaneous Rate FiO2 % Tidal Volume PEEP Pressure Support CPAP Sodium 138 Potassium 3.1 L Chloride 87 L Carbon Dioxide 37 H Anion Gap 14 BUN 30 H Creatinine 0.6 Estimated GFR/1.73 m2 > 60 BUN/Creatinine Ratio 50 Glucose 196 H Calculated Osmolality 287 Calcium 8.8 07/15/19 07/15/19 07/15/19 05:10 11:35 16:34 WBC RBC Hgb Hct MCV MCH MCHC RDW Std Deviation Plt Count MPV Neut % (Auto) Lymph % (Auto) [place] % (Auto) Eos % (Auto) Baso % (Auto) Neut # (Auto) Lymph # (Auto) [place] # (Auto) Eos # (Auto) Baso # (Auto) Segmented Neutrophils Band Neutrophils Lymphocytes Hypochromia Poikilocytosis PT INR Specimen Type ARTERIAL ARTERIAL ARTERIAL Sample Site R RADIAL R BRACHIAL R BRACHIAL pH 7.53 H 7.51 H 7.47 H pCO2 48 H 53 H* 61 H* pO2 117 H 57 L 71 HCO3 36.8 H 38.0 H 38.7 H Base Excess 15.3 H 16.9 H 17.8 H Oxyhemoglobin 94.8 L 90.3 L 92.1 L ABG O2 Sat (Calculated) 17.2 15.0 15.3 ABG O2 Saturation 96.8 92.7 L 94.8 L ABG Carboxyhemoglobin 0.60 1.50 1.50 ABG Methemoglobin 1.4 1.1 1.3 Phil Test YES NO NO A-a O2 Difference 180.0 162.0 138.0 Total Hemoglobin 12.8 11.8 11.8 Lactate 1.50 1.60 1.50 Liter Flow 10.0 Blood Gas Modality VENTILATOR VENTILATOR COOL AEROSOL Vent Mode A/C PC CPAP Spontaneous Rate 14 FiO2 % 50.0 40.0 40.0 Tidal Volume 500 PEEP 5.0 5.0 Pressure Support 5.00 CPAP 5.0 Sodium Potassium Chloride Carbon Dioxide Anion Gap BUN Creatinine Estimated GFR/1.73 m2 BUN/Creatinine Ratio Glucose Calculated Osmolality Calcium Assessment: Acute hypoxemic hypercapnic respiratory failure. Intubated on 07/11/19. Improving. COPD exacerbation. Shock at presentation. Stable. Stays off pressor. Possible acute cor pulmonale with significantly elevated proBNP, elevated troponin, mild cardiomegaly and pulmonary edema. Pneumonia. Sputum culture on 07/12/19 grows 1+ yeast. CXR today shows LLL pneumonia. Worsening leukocytosis likely secondary to IV Solu-Medrol. Plan: Extubation ordered. Start supplemental oxygen via CAM with BiPAP at bedtime and as needed. We titrated supplemental oxygen and BiPAP settings to patients needs per clinical protocols. We will monitor patients response closely. We follow up ABG at 1600 today. We discontinue sedative (Diprivan drip). Continue Antibiotics including Aztreonam and Levaquin. We will keep monitoring patient's clinical and lab response closely. Continue IV Solu-Medrol. We decrease the dosage to 40 mg q12h at this time. Continue bronchodilators. Continue GI and DVT prophylaxis. Critical care time in minutes: 34.
--- NOTE | 2019-07-15 20:04 | PROGRESS NOTE ---
DATE: 07/15/2019 SUBJECTIVE: Patient is on the weaning protocol. I spoke to them. Successfully extubated after CPAP. Got a PICC line for poor IV access. Potassium was low, was replaced. PHYSICAL EXAMINATION: No change. INVESTIGATIONS: White cell count 20, hematocrit 38, platelets 423,000. Arterial blood gases: PH is 7.47, pCO2 61, pO2 71 on CPAP mode. SMA 7: potassium 3.1. ASSESSMENT AND PLAN: 1. Successfully extubated for chronic obstructive pulmonary disease exacerbation. 2. Intravenous access for peripherally inserted central catheter line. 3. Continue intravenous antibiotics and intravenous Clinimix. 4. Replace the potassium. 5. Deep venous thrombosis and gastrointestinal prophylaxis. 6. Abnormal electrocardiogram, at least to do cardiac stress test after she recovers from this chronic obstructive pulmonary disease exacerbation. 7. Possible left lower lobe pneumonia. Continue incentive spirometry and bronchial toilet and will follow up. LEVEL OF DOCUMENTATION: 35 minutes. cc: Ángel Jenkins MD
[2019-07-16] MEDS: AZACTAM 1 GM in NS 50 ML IV SCH ×3 (02:43→17:27)
[2019-07-16] MEDS: DUONEB (A & A) INH SCH ×6 (03:28→22:50)
[2019-07-16 05:28] LABS: ALLEN TEST YES; BE 17.7 mmoll (-3.0-3.0); BLOOD TYPE ARTERIAL; HCO3-(ACT) 38.7 mmoll (20.0-26.0); METHB 1.1 % (0.0-1.5); O2(CT) 14.9 mL/dL (15.0-23.0); O2HB 95.7 % (95.0-99.0); PO2(98.6) 138 mmHg (60-100); SAMPLE BLOOD; SAO2 98.4 % (95.0-100.0); SRATE 14 BPM; THB 10.9 g/dL (11.5-17.4); pH(98.6) 7.45 (7.35-7.45)
[2019-07-16 05:30] LABS: MODALITY BI PAP; PCO2(98.6) 64 mmHg (35-45)
[2019-07-16 06:18] LABS: EOS# 0.03 X1000 (0.0-0.7); EOS% 0.1 % (0.0-10.0); HEMATOCRIT 38.6 % (37.0-47.0); HEMOGLOBIN 10.6 g/dL (12.0-16.0); IMM GRAN# 0.07 X1000 (0.0-0.04); IMM GRAN% 0.3 % (0.0-0.5); LYMPH# 1.04 X1000 (1.2-3.4); LYMPH% 4.6 % (20.5-51.1); MCHC 27.5 g/dL (33-37); MCV 94.8 FL (81-99); MONO# 0.63 X1000 (0.11-0.59); MONO% 2.8 % (1.7-9.3); NEUT# 20.93 X1000 (1.4-6.5); NEUT% 92.2 % (42.2-75.2); PLT 568 X1000 (130-400); RBC 4.07 XMIL (4.2-5.4); RDW 21.4 % (11.5-14.5)
--- NOTE | 2019-07-16 06:44 | Diag Imaging Result Doc PS360 ---
EXAM: CHEST-1 VIEW 07/16/2019 HISTORY: SOB TECHNIQUE: AP portable at 0515 COMMENT: The endotracheal tube has been removed. The NG tube remains. There is a right PICC line with its tip in the superior vena cava. There continues to be alveolar opacity in the left lower lobe. IMPRESSION: Left lower lobe pneumonia. Electronically signed by Ajay Mccarty 07/16/2019 6:42 AM
[2019-07-16 06:59] LABS: AGAP 12; BUN 29 mg/dL (8-22); CALCIUM 9.4 mg/dL (8.8-10.2); CHLORIDE 95 mmol/L (98-107); COSMO 295; CREATININE 0.5 mg/dL (0.5-0.9); ESTIMATED GFR > 60; GLUCOSE 165 mg/dL (70-104); SODIUM 143 mmol/L (136-145); TCO2 36 mmol/L (25-35)
[2019-07-16] MEDS: SOLU-MEDROL IV SCH ×2 (10:08→20:13)
--- NOTE | 2019-07-16 16:06 | PROVIDER PROGRESS NOTE ---
Progress Note Dr. Lees Progress Note/Pulmonary and or critical care Subjective: Patient was successfully extubated yesterday afternoon. She is lying in bed, awake and alert with no acute distress noted. She appears depressive. She is on NC 3L at this time and tolerates well. Input was appreciated from Dr. Jenkins and other teams on the case. Objective: Vital Signs: T 97.2 (No fever in last 24 hours), SD 83, RR 19, BP 115/66 and SaO2 100% on BiPAP 40% 02/27. I/O:-292 ml. Physical Examination: General: Lying in bed on ventilator with no acute distress noted. HEENT: Atraumatic. Normocephalic. Trachea midline. Mucosa pink and moist. ET tube in place. PERRL. Respiratory: Symmetrical excursion. Good air entry bilaterally with no wheezing noted. Cardiovascular: S1 and S2 appreciated. Gastrointestinal: Soft. Nondistended. Normoactive bowel sounds in all 4 quadra nts. Extremities: BLE trace edema. No clubbing or cyanosis noted. Neurologic: Awake and alert. Communicative. Labs and Radiology: Laboratory Results 07/15/19 07/16/19 07/16/19 16:34 04:30 04:30 WBC 22.70 H RBC 4.07 L Hgb 10.6 L Hct 38.6 MCV 94.8 MCH 26.0 L MCHC 27.5 L RDW Std Deviation 21.4 H Plt Count 568 H D MPV 11.0 H Immature Gran % (Auto) 0.3 Neut % (Auto) 92.2 H Lymph % (Auto) 4.6 L [place] % (Auto) 2.8 Eos % (Auto) 0.1 Baso % (Auto) 0.0 Immature Gran # (Auto) 0.07 H Neut # (Auto) 20.93 H Lymph # (Auto) 1.04 L [place] # (Auto) 0.63 H Eos # (Auto) 0.03 Baso # (Auto) 0.00 Specimen Type ARTERIAL Sample Site R BRACHIAL pH 7.47 H pCO2 61 H* pO2 71 HCO3 38.7 H Base Excess 17.8 H Oxyhemoglobin 92.1 L ABG O2 Sat (Calculated) 15.3 ABG O2 Saturation 94.8 L ABG Carboxyhemoglobin 1.50 ABG Methemoglobin 1.3 Phil Test NO A-a O2 Difference 138.0 Total Hemoglobin 11.8 Lactate 1.50 Liter Flow 10.0 Blood Gas Modality COOL AEROSOL Spontaneous Rate FiO2 % 40.0 Inspiratory BiPAP Expiratory BiPAP Sodium 143 Potassium 4.0 D Chloride 95 L Carbon Dioxide 36 H Anion Gap 12 BUN 29 H Creatinine 0.5 Estimated GFR/1.73 m2 > 60 BUN/Creatinine Ratio 58 Glucose 165 H Calculated Osmolality 295 Calcium 9.4 07/16/19 05:18 WBC RBC Hgb Hct MCV MCH MCHC RDW Std Deviation Plt Count MPV Immature Gran % (Auto) Neut % (Auto) Lymph % (Auto) [place] % (Auto) Eos % (Auto) Baso % (Auto) Immature Gran # (Auto) Neut # (Auto) Lymph # (Auto) [place] # (Auto) Eos # (Auto) Baso # (Auto) Specimen Type ARTERIAL Sample Site R RADIAL pH 7.45 pCO2 64 H* pO2 138 H HCO3 38.7 H Base Excess 17.7 H Oxyhemoglobin 95.7 ABG O2 Sat (Calculated) 14.9 L ABG O2 Saturation 98.4 ABG Carboxyhemoglobin 1.60 ABG Methemoglobin 1.1 Phil Test YES A-a O2 Difference 67.0 Total Hemoglobin 10.9 L Lactate 2.40 H Liter Flow Blood Gas Modality BI PAP Spontaneous Rate 14 FiO2 % 40.0 Inspiratory BiPAP 12.0 Expiratory BiPAP 6.0 Sodium Potassium Chloride Carbon Dioxide Anion Gap BUN Creatinine Estimated GFR/1.73 m2 BUN/Creatinine Ratio Glucose Calculated Osmolality Calcium Assessment: Acute hypoxemic hypercapnic respiratory failure. Intubated between 07/11/19- 07/15/19. Improving oxygenation, but worsened hypercapnia. COPD exacerbation. Shock at presentation. Stable. Stays off pressor. Possible acute cor pulmonale with significantly elevated proBNP, elevated troponin, mild cardiomegaly and pulmonary edema. Pneumonia. Sputum culture on 07/12/19 grew 1+ yeast. CXR today shows LLL pneumonia. Worsening leukocytosis likely secondary to IV Solu-Medrol. Plan: Continue supplemental oxygen with BiPAP at bedtime and as needed. We titrated supplemental oxygen and BiPAP settings to patients needs per clinical protocols. We will monitor patients response closely. We follow up ABG. Continue Haldol for anxiety. Continue Antibiotics including Aztreonam and Levaquin. We will keep monitoring patient's clinical and lab response closely. Continue to wean off IV Solu-Medrol. Continue bronchodilators. Continue GI and DVT prophylaxis. We start physical therapy at this time. Critical care time in minutes: 31.
[2019-07-16] MEDS: LEVAQUIN 500 MG/D5W 500 MG/100 ML IVPB IV SCH (17:27)
[2019-07-16] MEDS: CLINIMIX E 4.25%-5% SOLUTION 1,000 ML IV SCH (17:28)
[2019-07-16] MEDS: LOVENOX SUBQ SCH (17:29)
[2019-07-16] MEDS: PROTONIX IV SCH (17:29)
--- NOTE | 2019-07-16 19:30 | PROGRESS NOTE ---
DATE: 07/16/2019 SUBJECTIVE: The patient got extubated and she is on BiPAP last night. PICC line was placed on the right side. This time she needs cardiac workup as well. PHYSICAL EXAMINATION: Temperature is 97 degrees. Vitals are stable on BiPAP.Chest: Clear. Heart: Sounds are regular. Abdomen: Belly is soft, nontender. Neurological: No neurological deficits. INVESTIGATIONS: White cell count 22, hematocrit 38 platelets 568,000. ABG pH is 7.45, pCO2 64, PO2 138 on BiPAP. SMA-7 is normal. ASSESSMENT AND PLAN: 1. Acute respiratory failure, off the vent on BiPAP. 2. Carbon dioxide retention. 3. Left lower lobe infiltrate. 4. Status post PICC line on the right side. 5. Continue Azactam, Levaquin IV steroids and DC [place], discontinue nasogastric tube. Speech therapy evaluation. Advance the diet. Out of the bed with physical therapy and will follow up. 6. Abnormal EKG, probably needs cardiac workup. LEVEL OF DOCUMENTATION: 25 minutes. cc: Ángel Jenkins MD
[2019-07-17] MEDS: AZACTAM 1 GM in NS 50 ML IV SCH ×3 (01:13→17:06)
[2019-07-17] MEDS: DUONEB (A & A) INH SCH ×6 (05:00→23:03)
[2019-07-17 06:29] LABS: EOS# 0.01 X1000 (0.0-0.7); EOS% 0.1 % (0.0-10.0); HEMATOCRIT 39.4 % (37.0-47.0); HEMOGLOBIN 10.5 g/dL (12.0-16.0); LYMPH# 0.38 X1000 (1.2-3.4); LYMPH% 2.1 % (20.5-51.1); MCH 26.3 PG (27-31); MCHC 26.6 g/dL (33-37); MCV 98.5 FL (81-99); MONO# 1.02 X1000 (0.11-0.59); MONO% 5.6 % (1.7-9.3); MPV 10.7 FL (7.4-10.4); NEUT# 16.78 X1000 (1.4-6.5); NEUT% 92.2 % (42.2-75.2); PLT 530 X1000 (130-400); RDW 21.1 % (11.5-14.5); WBC 18.19 X1000 (4.8-10.8)
[2019-07-17 06:30] LABS: AGAP 11; BUN 26 mg/dL (8-22); CALCIUM 9.4 mg/dL (8.8-10.2); CHLORIDE 95 mmol/L (98-107); COSMO 293; CREATININE 0.4 mg/dL (0.5-0.9); ESTIMATED GFR > 60; GLUCOSE 155 mg/dL (70-104); POTASSIUM 4.6 mmol/L (3.5-5.1); SODIUM 143 mmol/L (136-145); TCO2 37 mmol/L (25-35)
--- NOTE | 2019-07-17 06:43 | Diag Imaging Result Doc PS360 ---
EXAM: CHEST-1 VIEW HISTORY: intubation TECHNIQUE: Single view COMPARISON: 07/16/2019 FINDINGS: The lungs are well expanded. The heart is borderline mildly prominent. No change in the right-sided PICC line. The nasogastric tube has been removed. Left basilar infiltrates are less pronounced.. No pleural effusions identified. IMPRESSION: Mild interval improvement Electronically signed by Baldemar Correia 07/17/2019 6:41 AM
[2019-07-17 07:27] LABS: LYMPHS 2 % (21-51); MONO 3 % (1-9); SEGS 95 % (42-75)
[2019-07-17] MEDS ORDERED: BREO ELLIPTA 200/25 MCG INH INH ONE (12:35)
[2019-07-17] MEDS ORDERED: NICODERM PATCH TD PRN (12:35)
[2019-07-17] MEDS: CLINIMIX E 4.25%-5% SOLUTION 1,000 ML IV SCH (12:58)
--- NOTE | 2019-07-17 15:29 | PROGRESS NOTE ---
DATE: 07/17/2019 SUBJECTIVE: The patient is doing better. NG tube was out and Steiner was out. She is eating well. Soft diet. I explained the findings. REVIEW OF SYSTEMS: Occasional cough. OBJECTIVE: Vital Signs: Temperature 98, pulse 107. Vitals are stable. Chest: Bilateral air entry. Heart: Heart sounds are regular. Abdomen: Belly is soft, nontender. Extremities: No edema. PICC line on the right side. INVESTIGATIONS: CBC: White cell count 18, hematocrit 39, platelets 530,000. SMA 7 is normal. ASSESSMENT AND PLAN: 1. Acute chronic obstructive pulmonary disease exacerbation, status post ventilator support. 2. Peripherally inserted central catheter line on the right side. 3. Abdominal EKG. 4. Edema due to cor pulmonale. 5. Ongoing tobacco abuse. Plan is to continue IV Clinimix. Advance the diet. Please see the Transfer orders and quit smoking, and physical therapy evaluation Saturday after stabilize. Will do the stress test because of the abnormal EKG to rule out CAD. Continue out of the bed with physical therapy. LEVEL OF DOCUMENTATION: 25 minutes. cc: Ángel Jenkins MD MTDD
[2019-07-17] MEDS: PROTONIX IV SCH ×2 (15:52→17:02)
[2019-07-17] MEDS: LEVAQUIN 500 MG/D5W 500 MG/100 ML IVPB IV SCH ×2 (15:52→17:01)
[2019-07-17] MEDS: LOVENOX SUBQ SCH ×2 (15:53→17:01)
[2019-07-17] MEDS: TYLENOL PO PRN (16:40)
--- NOTE | 2019-07-17 18:59 | PULMONOLOGY PROGRESS NOTE ---
DATE: 07/17/2019 SUBJECTIVE: Ms. Solorio is in the process of being moved from ICU to a floor bed. She denies any complaints. OBJECTIVE: Vital Signs: Blood pressure is 126/65 with a heart rate of 105. Respirations are 18, temperature is 98.7 oral with O2 saturations ranging from 95% to 97% on 3 L nasal cannula. HEENT: Head is normocephalic, atraumatic. Mucous membranes are moist. Pupils are equal and round and react to light. EOMs are intact. Sclerae are anicteric. Neck: Supple with trachea midline. Cardiovascular: Regular rate and rhythm. S1 and S2 are appreciated. No murmur. Pulmonary: Breath sounds are coarse. Chest rise and fall symmetric with respiration. No increased work of breathing noted. Gastrointestinal: Abdomen is soft, nontender, nondistended with bowel sounds in all 4 quadrants. Extremities: Bilateral trace lower extremity edema. No clubbing or cyanosis. Peripheral pulses are palpable. Neurologic: She is awake and alert and oriented. LABS: WBCs 18.1 with hemoglobin 10.5, hematocrit 39.4, platelets of 530. Sodium is 143, potassium 4.6, BUN 26, creatinine 0.4 with a glucose of 155. Chest x-ray reveals lungs are well expanded. Left basilar infiltrates are less pronounced. No pleural effusions. ASSESSMENT: This is a 58-year-old female with: 1. Acute hypoxemic hypercapnic respiratory failure. Intubated 07/11/2019, extubated 07/15/2019. 2. Chronic obstructive pulmonary disease exacerbation. 3. Shock on presentation, currently off pressors. 4. Pneumonia. Sputum culture grew yeast. 5. Hypercapnia. PLAN: 1. We will continue supplemental oxygen, cycling BiPAP as needed. Continue antibiotics, aztreonam and Levaquin as per primary team. 2. Continue to wean IV steroids. 3. Continue bronchodilators and pulmonary hygiene. 4. Continue Clinimix as per primary team. 5. Gastric acid suppression with Protonix. Dictated by MADINA Ferreira for Nolan Montoya MD cc: MADINA Ferreira MD Jagan Reddy, MD
[2019-07-17] MEDS: SOLU-MEDROL IV SCH (21:30)
[2019-07-18] MEDS: AZACTAM 1 GM in NS 50 ML IV SCH ×3 (01:40→17:37)
[2019-07-18] MEDS: DUONEB (A & A) INH SCH ×5 (03:54→20:16)
[2019-07-18] MEDS: TYLENOL PO PRN ×4 (05:27→23:16)
[2019-07-18] MEDS: SPIRIVA INH SCH (08:01)
[2019-07-18] MEDS: BREO ELLIPTA 200/25 MCG INH INH SCH (08:01)
[2019-07-18] MEDS: CLINIMIX E 4.25%-5% SOLUTION 1,000 ML IV SCH (08:42)
--- NOTE | 2019-07-18 12:28 | PROGRESS NOTE ---
DATE: 07/18/2019 Ms. Solorio, who is a 58-year-old white female, is admitted with acute hypoxemic respiratory failure. She has COPD and pneumonia. She is on IV Levaquin as well as Azactam. Her lungs reveal some expiratory wheezing bilaterally. Her temperature is 99.4 degrees. White count is 18.19, hemoglobin 10.5, hematocrit 39.4. Electrolytes are normal. BUN 26, creatinine 0.4. So far the cultures are negative. We will continue the current line of antibiotics. -4 cc: MD Ángel Horne MD
[2019-07-18] MEDS: PROTONIX IV SCH ×2 (15:45→16:04)
[2019-07-18] MEDS: LOVENOX SUBQ SCH ×2 (15:45→16:04)
[2019-07-18] MEDS: SODIUM CHLORIDE 0.9% INJ SCH (15:45)
[2019-07-18] MEDS: LEVAQUIN 500 MG/D5W 500 MG/100 ML IVPB IV SCH ×2 (15:47→16:04)
[2019-07-18] MEDS: SOLU-MEDROL IV SCH (21:36)
--- NOTE | 2019-07-18 22:21 | PULMONOLOGY PROGRESS NOTE ---
DATE: 07/18/2019 SUBJECTIVE: Ms Solorio denies any complaints. She is eating well. States her appetite is good. OBJECTIVE: Vital Signs: Blood pressure is 115/60 with a heart rate of 80, respirations are 16, temperature is 98.6 degrees oral with O2 saturations that are 97% on 2 L nasal cannula. Cardiovascular: Regular rate and rhythm. S1 and S2 are appreciated. Pulmonary: Breath sounds are coarse. Chest rises and falls symmetric with respiration. No increased work of breathing noted. Gastrointestinal: Abdomen soft, nontender, nondistended with bowel sounds in all 4 quadrants. Extremities: Bilateral trace lower extremity edema. No clubbing or cyanosis. She states calves are nontender. Peripheral pulses are palpable x4 extremities. Neurologic: She is alert and oriented. LABS: WBC is 18.1 with hemoglobin 10.5, hematocrit 39.4 and platelets of 530,000. Sodium 143, potassium 4.6, BUN 26, creatinine 0.4 with a blood sugar of 155. ASSESSMENT: This is a 58-year-old female with 1. Acute hypoxemic hypercapnic respiratory failure, intubated 07/11/2019, extubated 07/15/2019. 2. Chronic obstructive pulmonary disease exacerbation. 3. Shock on presentation, resolved. 4. Pneumonia. Sputum grew yeast. 5. Hypercapnia. PLAN: 1. Continue supplemental oxygen cycling BiPAP as needed. 2. Continue antibiotics aztreonam and Levaquin per primary team. 3. Continue to wean IV steroids. 4. Continue bronchodilators and pulmonary hygiene. 5. Continue Clinimix as per primary team. 6. Continue gastric acid suppression. Dictated by MADINA Ferreira for Nolan Montoya MD cc: MADINA Ferreira MD Jagan Reddy, MD
[2019-07-19] MEDS: DUONEB (A & A) INH SCH ×7 (00:50→23:17)
[2019-07-19] MEDS: AZACTAM 1 GM in NS 50 ML IV SCH ×3 (01:26→20:09)
[2019-07-19] MEDS: CLINIMIX E 4.25%-5% SOLUTION 1,000 ML IV SCH (05:32)
[2019-07-19] MEDS: TYLENOL PO PRN ×3 (06:21→18:53)
[2019-07-19] MEDS: SPIRIVA INH SCH (08:09)
[2019-07-19] MEDS: BREO ELLIPTA 200/25 MCG INH INH SCH (08:09)
--- NOTE | 2019-07-19 11:52 | PROGRESS NOTE ---
DATE: 07/19/2019 Ms. Solorio has COPD, pneumonia. She is on levofloxacin and aztreonam. We will continue with her current management. We will repeat a chest x-ray on her in the morning. -6 cc: MD Ángel Horne MD
[2019-07-19] MEDS: LEVAQUIN 500 MG/D5W 500 MG/100 ML IVPB IV SCH (16:57)
[2019-07-19] MEDS: LOVENOX SUBQ SCH (16:57)
[2019-07-19] MEDS: PROTONIX IV SCH (16:57)
--- NOTE | 2019-07-19 18:36 | PULMONOLOGY PROGRESS NOTE ---
DATE: 07/19/2019 SUBJECTIVE: Ms. Solorio denies any complaints. She is sitting up in the chair. OBJECTIVE: Vital Signs: Blood pressure is 130/70 with heart rate of 92, respirations are 19, temperature is 97.4 degrees with O2 saturations 97% on 3 L nasal cannula. Cardiovascular: Regular rate and rhythm. S1, S2 appreciated. No murmur. Pulmonary: Breath sounds are coarse throughout. Chest rises and falls symmetric respiration. No increased work of breathing noted. Gastrointestinal: Abdomen soft, nontender, nondistended with bowel sounds in all 4 quadrants. Extremities: Bilateral trace pedal edema. No clubbing, cyanosis. She states calves are nontender. Peripheral pulses are palpable x4 extremities. Neurologic: She is alert and oriented. ASSESSMENT: This is a 58-year-old female with 1. Acute hypoxemic hypercapnic respiratory failure intubated 07/11/2019 and extubated 07/15/2019. 2. Chronic obstructive pulmonary disease exacerbation. 3. Shock on presentation, resolved. 4. Pneumonia. 5. Hypercapnia. PLAN: 1. Continue cycling supplemental oxygen and BiPAP. 2. Continue antibiotics as per primary team. 3. Continue to wean steroids. 4. Continue pulmonary hygiene. 5. Continue Clinimix. 6. Gastric acid suppression. Dictated by MADINA Ferreira for Nolan Montoya MD cc: MADINA Ferreira MD Jagan Reddy, MD
[2019-07-19] MEDS: SOLU-MEDROL IV SCH (20:09)
[2019-07-20] MEDS: DUONEB (A & A) INH SCH ×6 (03:20→23:04)
[2019-07-20] MEDS: AZACTAM 1 GM in NS 50 ML IV SCH ×3 (03:23→21:54)
[2019-07-20] MEDS: CLINIMIX E 4.25%-5% SOLUTION 1,000 ML IV SCH (03:23)
[2019-07-20] MEDS: TYLENOL PO PRN ×4 (03:29→22:40)
--- NOTE | 2019-07-20 07:58 | Diag Imaging Result Doc PS360 ---
EXAM: CHEST-2 VIEWS 07/20/2019 HISTORY: follow up TECHNIQUE: Two views the chest COMMENT: Compared to 07/17/2019 the opacity in the retrocardiac left lower lobe has improved. There is blunting of the costophrenic angle on the right which was apparently present previously. It was not present on 07/16/2019. IMPRESSION: Improved left lower lobe pneumonia. Right pleural effusion. Electronically signed by Ajay Mccarty 07/20/2019 7:55 AM
[2019-07-20] MEDS: SPIRIVA INH SCH (09:33)
[2019-07-20] MEDS: BREO ELLIPTA 200/25 MCG INH INH SCH (09:34)
[2019-07-20 12:15] LABS: ALLEN TEST YES; BE 6.7 mmoll (-3.0-3.0); BLOOD TYPE ARTERIAL; HCO3-(ACT) 30.1 mmoll (20.0-26.0); METHB 1.3 % (0.0-1.5); MODALITY CANNULA; O2(CT) 13.1 mL/dL (15.0-23.0); O2HB 94.9 % (95.0-99.0); PCO2(98.6) 44 mmHg (35-45); PO2(98.6) 84 mmHg (60-100); SAMPLE BLOOD; SAO2 97.4 % (95.0-100.0); THB 9.7 g/dL (11.5-17.4); pH(98.6) 7.46 (7.35-7.45)
[2019-07-20] MEDS ORDERED: MEDROL DOSEPAK PO SCH (14:00)
--- NOTE | 2019-07-20 15:20 | PROVIDER PROGRESS NOTE ---
Progress Note Dr. Lees Progress Note/Pulmonary and or critical care Subjective: Patient is sitting in bed on NC 2L. She is calling her insurance company at this time. She states she is fine and she is ready to go home. She does have some choking sensation at times during eating or drinking. Objective: Vital Signs: T 98.6 (No fever in last 24 hours), WI 76, RR 18, BP 113/54 and SaO2 98% on NC 2L. Physical Examination: General: Sitting in bed and talking on phone with no acute distress noted. HEENT: Atraumatic. Normocephalic. Trachea midline. Mucosa pink and moist. ET tube in place. PERRL. Respiratory: Even and unlabored. Symmetrical excursion. Clear to auscultation with good air entry bilaterally. Cardiovascular: S1 and S2 appreciated. Gastrointestinal: Soft. Nondistended. Normoactive bowel sounds in all 4 quadrants. Extremities: BLE trace edema. No clubbing or cyanosis noted. Neurologic: A/O x 3. Speech fluent. Follow commands. Labs and Radiology: Laboratory Results 07/20/19 12:00 Specimen Type ARTERIAL Sample Site R RADIAL pH 7.46 H pCO2 44 pO2 84 HCO3 30.1 H Base Excess 6.7 H Oxyhemoglobin 94.9 L ABG O2 Sat (Calculated) 13.1 L ABG O2 Saturation 97.4 ABG Carboxyhemoglobin 1.30 ABG Methemoglobin 1.3 Phil Test YES A-a O2 Difference 61.0 Total Hemoglobin 9.7 L Lactate 0.90 Blood Gas Modality CANNULA FiO2 % 28.0 Assessment: Acute hypoxemic hypercapnic respiratory failure. Intubated between 07/11/19- 07/15/19. Resolved. COPD exacerbation. Shock on presentation. Resolved. Possible acute cor pulmonale with significantly elevated proBNP, elevated troponin, mild cardiomegaly and pulmonary edema. Pneumonia. CXR this morning shows improved LLL pneumonia with right pleural effusion. Worsening leukocytosis presumably secondary to IV Solu-Medrol. Plan: Continue BiPAP at bedtime. Continue Antibiotics including Aztreonam and Levaquin. We will keep monitoring patient's clinical and lab response closely. Discontinue IV Solu-Medrol and start Medrol Dosepak. Continue bronchodilators. Continue GI and DVT prophylaxis. Stress test doay.
[2019-07-20] MEDS: LEVAQUIN 500 MG/D5W 500 MG/100 ML IVPB IV SCH (16:18)
[2019-07-20] MEDS: PROTONIX IV SCH (16:18)
[2019-07-20] MEDS: LOVENOX SUBQ SCH (16:18)
[2019-07-20] MEDS: MEDROL PO SCH ×2 (19:01→21:55)
--- NOTE | 2019-07-20 19:39 | PROGRESS NOTE ---
DATE: 07/20/2019 SUBJECTIVE: The patient is anxious to go home and she denies having any chest pain. Last time she was too early to go home. She is not taking the Breo and Spiriva and bronchodilators. She has abnormal EKG. She has a PICC line on the right side. PHYSICAL EXAMINATION: Vitals: Low grade fever. Vitals are stable. On 2 L nasal cannula, 98%. HEENT: Within normal limits. Chest: Bilateral air entry. Expiratory wheezing. Heart: Sounds are regular. No edema noted. PICC line on the right side. INVESTIGATIONS: ABG: PH is 7.46, pCO2 44, pO2 84 on 28%. Chest x-ray 07/20/2019: Improved left lower lobe pneumonia and right pleural effusion. ASSESSMENT: 1. Acute respiratory failure due to chronic obstructive pulmonary disease. 2. Abnormal electrocardiogram. 3. Elevated proBNP. PLAN: 1. Continue present treatment which includes as Azactam, Levaquin, and steroids. 2. We are going to taper off the Medrol Dosepak. 3. Deep venous thrombosis and gastrointestinal prophylaxis. 4. Schedule for a stress test. If it is negative, we will discharge in the morning. We will get the labs. LEVEL OF DOCUMENTATION: 25 minutes. cc: Ángel Jenkins MD
[2019-07-21] MEDS: DUONEB (A & A) INH SCH ×6 (03:31→23:16)
[2019-07-21] MEDS: AZACTAM 1 GM in NS 50 ML IV SCH ×3 (05:40→20:57)
[2019-07-21 06:59] LABS: BASO# 0.01 X1000 (0.0-0.2); BASO% 0.1 % (0.0-0.8); EOS# 0.06 X1000 (0.0-0.7); EOS% 0.5 % (0.0-10.0); HEMATOCRIT 34.7 % (37.0-47.0); HEMOGLOBIN 9.5 g/dL (12.0-16.0); IMM GRAN# 0.09 X1000 (0.0-0.04); IMM GRAN% 0.8 % (0.0-0.5); LYMPH% 7.9 % (20.5-51.1); MCHC 27.4 g/dL (33-37); MCV 94.8 FL (81-99); MONO# 0.76 X1000 (0.11-0.59); MONO% 6.7 % (1.7-9.3); MPV 10.8 FL (7.4-10.4); NEUT# 9.55 X1000 (1.4-6.5); PLT 484 X1000 (130-400); RBC 3.66 XMIL (4.2-5.4); RDW 20.5 % (11.5-14.5); WBC 11.37 X1000 (4.8-10.8)
[2019-07-21] MEDS: TYLENOL PO PRN ×3 (07:24→20:57)
[2019-07-21 07:32] LABS: AGAP 17; BUN 10 mg/dL (8-22); CALCIUM 9.4 mg/dL (8.8-10.2); CHLORIDE 98 mmol/L (98-107); COSMO 277; CREATININE 0.4 mg/dL (0.5-0.9); ESTIMATED GFR > 60; GLUCOSE 108 mg/dL (70-104); POTASSIUM 5.2 mmol/L (3.5-5.1); SODIUM 139 mmol/L (136-145); TCO2 24 mmol/L (25-35)
[2019-07-21] MEDS: BREO ELLIPTA 200/25 MCG INH INH SCH (07:39)
[2019-07-21] MEDS: SPIRIVA INH SCH (07:39)
[2019-07-21] MEDS ORDERED: DOBUTAMINE 250 MG/D5W 250 MG/250 ML IV.SOLN ONE (08:16)
[2019-07-21] MEDS ORDERED: NS 500 ML ONE (08:17)
[2019-07-21] MEDS: MEDROL PO SCH ×4 (09:41→20:57)
[2019-07-21] MEDS ORDERED: MEDROL PO SCH (12:00)
--- NOTE | 2019-07-21 15:17 | Diag Imaging Result Document ---
PROCEDURE NAME: MYOCARDIAL PERF SCAN, STR/REST - 07/20/2019 STUDY PERFORMED: Dobutamine sestamibi interpretation. SUMMARY: The patient was studied using a two-day protocol. The patient underwent resting sestamibi study on 07/20/2019 and dobutamine sestamibi study on 07/21/2019. On July 19, the patient was administered 29.2 mCi of technetium-99m sestamibi, after which resting cardiac images were obtained. The patient was subsequently stressed using a dobutamine protocol and was administered stepwise infusion of dobutamine intravenously to a maximum dose of 20 mcg/kg per minute. The heart rate increased from 75 beats per minute to 148 beats per minute, while the blood pressure went from 125/63 to 149/66. With dobutamine, the patient denied chest discomfort. At peak dobutamine infusion, the patient was administered 25.7 mCi of technetium-99m sestamibi, after which gated stress cardiac images were obtained. Baseline ECG demonstrated normal sinus rhythm and nonspecific T-wave abnormality. With dobutamine, there were no diagnostic ST-segment changes. SPECT images were reconstructed in the short, horizontal long, and vertical long axes. Review of these images demonstrated no scintigraphic evidence of inducible myocardial ischemia or prior infarct. Resting images noteworthy for increased gut uptake. Gated images demonstrate a calculated left ventricular ejection fraction of 72% with symmetrical wall motion/thickening. CONCLUSIONS: 1. Adequate response to dobutamine. 2. Clinically negative for chest pain. 3. Electrocardiographically negative for dobutamine-induced myocardial ischemia. 4. Dobutamine sestamibi images demonstrate no scintigraphic evidence of inducible myocardial ischemia. Normal left ventricular systolic function demonstrated. cc: MD Ángel Chris MD
[2019-07-21] MEDS: LOVENOX SUBQ SCH (17:04)
[2019-07-21] MEDS: SODIUM CHLORIDE 0.9% INJ SCH (17:04)
[2019-07-21] MEDS: PRILOSEC PO SCH (17:07)
[2019-07-21] MEDS: LEVAQUIN 500 MG/D5W 500 MG/100 ML IVPB IV SCH (17:07)
--- NOTE | 2019-07-21 18:16 | PROVIDER PROGRESS NOTE ---
Progress Note Dr. Lees Progress Note/Pulmonary and or critical care Subjective: Patient is sitting at the edge of the bed on NC 2L. She states she has no complaint and she is ready to go home. Objective: Vital Signs: T 99.0 (No fever in last 24 hours), NE 79, RR 18, BP 107/52 and SaO2 96% on NC 2L. Physical Examination: General: Sittingat the edge ofthebed with no acute distress noted. HEENT: Atraumatic. Normocephalic. Trachea midline. Mucosa pink and moist.PERRL. Respiratory: Even and unlabored. Symmetrical excursion. Clear to auscultation with good air entry bilaterally. Cardiovascular: S1 and S2 appreciated. Gastrointestinal: Soft. Nondistended. Normoactive bowel sounds in all 4 quadrants. Extremities: BLE trace edema. No clubbing or cyanosis noted. Neurologic: A/O x 3. Speech fluent. Follow commands. Labs and Radiology: Laboratory Results 07/21/19 07/21/19 06:11 06:11 WBC 11.37 H RBC 3.66 L Hgb 9.5 L Hct 34.7 L MCV 94.8 MCH 26.0 L MCHC 27.4 L RDW Std Deviation 20.5 H Plt Count 484 H MPV 10.8 H Immature Gran % (Auto) 0.8 H Neut % (Auto) 84.0 H Lymph % (Auto) 7.9 L Butler % (Auto) 6.7 Eos % (Auto) 0.5 Baso % (Auto) 0.1 Immature Gran # (Auto) 0.09 H Neut # (Auto) 9.55 H Lymph # (Auto) 0.90 L Butler # (Auto) 0.76 H Eos # (Auto) 0.06 Baso # (Auto) 0.01 Sodium 139 Potassium 5.2 H Chloride 98 Carbon Dioxide 24 L Anion Gap 17 BUN 10 Creatinine 0.4 L Estimated GFR/1.73 m2 > 60 BUN/Creatinine Ratio 25 Glucose 108 H Calculated Osmolality 277 Calcium 9.4 Assessment: Acute hypoxemic hypercapnic respiratory failure. Intubated between 07/11/19- 07/15/19. Resolved. COPD exacerbation. Shock on presentation. Resolved. Possible acute cor pulmonale.Dobutamine stress test today. Pneumonia. Clinically and radiographically improved. Hyperkalemia. Plan: Continue BiPAP at bedtime. Continue Antibiotics including Aztreonam and Levaquin. We will keep monitoring patient's clinical and lab response closely. Continue bronchodilators. Continue GI and DVT prophylaxis. Discharge planning.
--- NOTE | 2019-07-21 20:13 | PROGRESS NOTE ---
DATE: 07/21/2019 SUBJECTIVE: The patient is anxious to go home, and because of the abnormal EKG, elevated proBNP and CK, I did the stress test. She had a resting scan yesterday. The patient was seen in the nuclear medication lab. I also spoke to the . She needs to buy the bronchodilators and also quit smoking. OBJECTIVE: Vital signs: Temperature is 98.6 degrees. Vitals are stable. HEENT: Within normal limits. Lungs: Decreased wheezing. Cardiovascular: Heart sounds are regular. Abdomen: Belly is soft, nontender. Good bowel sounds. No obvious deficits. INVESTIGATIONS: White cell count 11.3, hematocrit 34, platelet 484,000. Sodium 139, potassium 5.2, BUN 10, creatinine 0.4, glucose 108. Blood cultures are negative. ASSESSMENT: 1. Acute chronic obstructive pulmonary disease exacerbation. 2. Ongoing tobacco abuse. 3. Cor pulmonale. 4. Abnormal EKG. PLAN: 1. Follow up on stress test result. If it is negative, we will discharge. 2. Bronchodilators, quit smoking and vaccinations. Was up-to-date on pneumococcal 13. We will give a pneumococcal 23 before discharge. LEVEL OF DOCUMENTATION: 25 minutes. cc: Ángel Jenkins MD
[2019-07-22] MEDS: TYLENOL PO PRN (03:15)
[2019-07-22] MEDS: DUONEB (A & A) INH SCH ×2 (03:20→07:40)
[2019-07-22] MEDS: AZACTAM 1 GM in NS 50 ML IV SCH (05:59)
[2019-07-22] MEDS: PRILOSEC PO SCH (05:59)
[2019-07-22] MEDS: SPIRIVA INH SCH (07:39)
[2019-07-22] MEDS: BREO ELLIPTA 200/25 MCG INH INH SCH (07:40)
[2019-07-22 08:06] VITALS: BP 118/59
[2019-07-22] MEDS ORDERED: PNEUMOVAX 23 IM ONE (08:26)
[2019-07-22] MEDS: MEDROL PO SCH (09:11)
--- NOTE | 2019-07-22 19:13 | DISCHARGE SUMMARY ---
ADMISSION DATE: 07/11/2019 DISCHARGE DATE: 07/22/2019 DISCHARGING DIAGNOSIS: Acute respiratory failure with carbon dioxide narcosis due to chronic obstructive pulmonary disease exacerbation. SECONDARY DIAGNOSES: 1. Abnormal EKG. Subsequent myocardial perfusion scan is negative. 2. Cor pulmonale with edema. 3. Hypertension. 4. Chronic tobacco abuse. 5. Vitamin D deficiency. CONSULTS: 1. Dr. Lees. PROCEDURES: 1. Ventilator support. 2. Peripherally inserted central catheter line on the right side. 3. Myocardial perfusion scan no reversible ischemia. Echocardiography report: Findings are technical difficult study. EF 70%. No wall motion abnormalities noted. BRIEF HISTORY: Please see the H and P that was done on 07/11/2019. In brief, she is a 58-year- old white female recently discharged from the hospital after staying in [place] for 3 years. She was she did follow up in my office from the previous admission. She was having productive cough, not able to buy the bronchodilators. She was continued on albuterol, Atrovent nebulizers, continues to smoke and also antibiotics with Levaquin. She failed to improve. She came back to the hospital with altered mental status, obtundation, CO2 narcosis, edema of the legs. The patient was intubated and admitted in ICU in a critical condition. HOSPITAL COURSE: 1. The patient was on the ventilator support, managed by Dr. Lees. 2. Patient was given IV Azactam and Levaquin along with bronchodilators and steroids. She does have pedal edema noted for which IV Lasix was given. D-dimer was negative. In the meantime, patient was given DVT, GI prophylaxis as per order sheet. She has abnormal EKG with elevated proBNP. I did a cardiac workup after she was extubated successfully. She did not show any evidence of significant coronary artery disease. 1. IV access is problematic. PICC line was placed. At the time of discharge, patient was stable. LABORATORY DATA: As follows: 1. White cell count 11, hematocrit 34.7, platelets 484,000. ABG on 28% FiO2, pH is 7.46, pCO2 44, PO2 84. Sodium 139, potassium 5.2, BUN is 10, creatinine 0.4 glucose 108. 2. Blood cultures, urine cultures, sputum cultures were negative. DISCHARGE INSTRUCTIONS: 1. Oxygen 2 L. 2. Continue to abstain from smoking. 3. Pneumococcal vaccine 13 was given 2016. Pneumococcal 23 was given 07/22/2019. 4. Losartan 25 mg daily, DuoNeb 1 puff q.6h as needed, Breo 1 puff daily, Levaquin 500 daily for 10 days, Medrol Dosepak, Spiriva 1 puff daily, Mucinex D 1 tablet p.o. b.i.d. 5. Follow up in my office in 10 days. cc: Ángel Jenkins MD
== END 2019-07-22 09:28 | disposition home or self-care (01) | DRG 208 ==
LOC: ED 10:19 → ICU 15:56 → 4N 07-17 12:26
PROVIDERS: ADMIT Internal Medicine; ATTEND Internal Medicine